=== PATIENT | male | born 1960 | race Caucasian/White ===

== ENCOUNTER 2018-12-19 07:44 | Inpatient (IN) | payer MEDICARE, MEDICAID ==
[~2018-12-19] VITALS: Ht 180.3 cm; Wt 58.5 kg
[~2018-12-19 07:44] MED LIST: ACET325T9 PO; ALBU2.5V5 NEB; ARIP2TAB3 PO; CHOL100013 PO; DOXY100C2 PO; DOXY100T PO; FAMO-63 PO; FLUT1DIS IH; FLUT1DIS3 INH; HYDR-2761 PO; IBUP-1027 PO; IPRA4AER IH; LEVO500T59 PO; LORA-434 PO; LORA10TA3 PO; PANT40TA77 PO; PRED-220 PO; PRED20TA PO; SIMV40TA3 PO; TIOT18CA IH; TIZA4TAB8 PO; VENTOLIN HFA18 GM IH
[2018-12-19] MEDS: IPRATRPIUM/ALBUTEROL 0.5/2.5MG 3 ML NEBU. NEB ONE ×2 (08:00→08:17)
[2018-12-19] MEDS ORDERED: IPRATRPIUM/ALBUTEROL 0.5/2.5MG 3 ML NEBU. NEB ONE (08:00)
[2018-12-19] MEDS ORDERED: methylPREDNISolone SOD SUCC PF 125 MG/2 ML VIAL. IV ONE (08:00)
--- NOTE | 2018-12-19 08:05 | EKG ---
[facility] [address] [place] [address] Test Date: 2018-12-19 Test Time: 07:53:02 Pat Name: MACIEJ YUAN Department: Room: Gender: M Quality Compliance Manager: : [id number] Requested By: EDSON ARAUJO Order Number: [id number] Reading MD: Measurements Intervals [place] Rate: 119 P: 90 ID: [id number] QRS: 88 QRSD: 80 T: 53 QT: 302 QTc: 431 Interpretive Statements SINUS TACHYCARDIA QRS(T) CONTOUR ABNORMALITY CONSIDER ANTEROSEPTAL INFARCT POSSIBLY ABNORMAL ECG RI6.01 Unconfirmed report No previous ECG available for comparison
[2018-12-19 08:20] LABS: BASO % 0 % (0-3); EOS % 0 % (0-3); HEMATOCRIT 40.1 % (39.0-53.0); HEMOGLOBIN 13.3 g/dL (13.0-17.5); LYMPH % 7 % (24-48); MEAN CORPUSCULAR HEMOGLOBIN 30 pg (25-35); MEAN CORPUSCULAR HGB CONC 33 g/dL (31-37); MEAN CORPUSCULAR VOLUME 90 fL (79-100); MONO # 2.1 x10^3/uL (0.0-1.1); MONO % 15 % (0-9); NEUT # 10.8 x10^3/uL (1.8-7.7); NEUT % 78 % (31-73); PLATELET COUNT 425 x10^3/uL (140-400); RED BLOOD COUNT 4.46 x10^6/uL (4.30-5.70); RED CELL DISTRIBUTION WIDTH 13.8 % (11.5-14.5); WHITE BLOOD COUNT 13.9 x10^3/uL (4.0-11.0)
--- NOTE | 2018-12-19 08:22 | RAD ---
Indication:Shortness of breath. TECHNIQUE:Portable AP chest X-ray COMPARISON: 12/10/2017. FINDINGS: Heart is normal in size. Lungs are hyperinflated without focal consolidation. No pneumothorax or pleural effusion. Visualized bony thorax is within normal limits. IMPRESSION: COPD. Superimposed atypical/viral infection not ruled out. Electronically signed by: Curly Beaulieu DO (12/19/2018 8:19 AM) [facility]
[2018-12-19 08:23] LABS: CALCIUM 9.9 mg/dL (8.5-10.1); GFR 76.2; POTASSIUM 5.1 mmol/L (3.5-5.1)
--- NOTE | 2018-12-19 08:27 | PHYS DOC ---
Past Medical History Past Medical History: Anxiety, COPD, GERD, High Cholesterol, Hypertension, Schizophrenia, Other Additional Past Medical Histor: Chronic Pain, allergic rhinitis, delusional disorder,Resp failure,vit D def Past Surgical History: Other Additional Past Surgical Histo: CHEST TUBE (R), (L) FOOT TENDON Additional Information: 2 cigarettes daily Alcohol Use: Rarely Drug Use: Marijuana Adult General Chief Complaint Chief Complaint: SHORTNESS OF BREATH HPI HPI Patient is a 58-year-old male with multiple medical problems including oxygen- dependent COPD who lives in a rehabilitation facility presents with a several day history of progressive shortness of breath. He states that he is been out of oxygen his home which is been difficult. He also states the air conditioner has been out at his facility over the last couple days which has led to increasing shortness of breath. He states he hasn't had any significant cough. He denies any chest pain. He denies any hemoptysis. He states this feels typical of his previous lung problems. He does state that he takes his medication as directed. He denies any fever chills or sweats.[] Review of Systems Review of Systems Constitutional: Denies fever or chills [] Eyes: Denies change in visual acuity, redness, or eye pain [] HENT: Denies nasal congestion or sore throat [] Respiratory: Reports[] Cardiovascular: No additional information not addressed in HPI [] GI: Denies abdominal pain, nausea, vomiting, bloody stools or diarrhea [] : Denies dysuria or hematuria [] Musculoskeletal: Denies back pain or joint pain [] Integument: Denies rash or skin lesions [] Neurologic: Denies headache, focal weakness or sensory changes [] Endocrine: Denies polyuria or polydipsia [] All other systems were reviewed and found to be within normal limits, except as documented in this note. Current Medications Current Medications Current Medications Medications (Trade) Dose Ordered Sig/Steven Start Time Stop Time Status Last Admin Dose Admin Albuterol/ Ipratropium (Duoneb) 3 ml 1X ONCE 12/19/18 08:00 12/19/18 08:04 DC 12/19/18 08:00 3 ML Methylprednisolone Sodium Succinate (SOLU-Medrol 125MG VIAL) 125 mg 1X ONCE 12/19/18 08:00 12/19/18 08:04 DC 12/19/18 08:06 125 MG Allergies Allergies Allergies Coded Allergies Type Severity Reaction Last Updated Verified I S O L A T I O N *CONTACT* Allergy Unknown 03/01/16 Yes No Known Medication Allergies Allergy Unknown 03/01/16 Yes Physical Exam Physical Exam Constitutional: Well developed, well nourished, no acute distress, non-toxic appearance. [] HENT: Normocephalic, atraumatic, bilateral external ears normal, oropharynx moist, no oral exudates, nose normal. [] Eyes: PERRLA, EOMI, conjunctiva normal, no discharge. [] Neck: Normal range of motion, no tenderness, supple, no stridor. [] Cardiovascular:Heart rate regular rhythm, no murmur [] Lungs & Thorax: Bilateral breath sounds clear to auscultation [] Abdomen: Bowel sounds normal, soft, no tenderness, no masses, no pulsatile masses. [] Skin: Warm, dry, no erythema, no rash. [] Back: No tenderness, no CVA tenderness. [] Extremities: No tenderness, no cyanosis, no clubbing, ROM intact, no edema. [] Neurologic: Alert and oriented X 3, normal motor function, normal sensory function, no focal deficits noted. [] Psychologic: Affect normal, judgement normal, mood normal. [] Current Patient Data Vital Signs Vital Signs Date Time Temp Pulse Resp B/P (MAP) Pulse Ox O2 Delivery O2 Flow Rate FiO2 12/19/18 08:22 92 Nasal Cannula 2.0 12/19/18 08:00 114 122/62 (82) 12/19/18 07:44 96.1 36 96.1 Lab Values Laboratory Tests Test 12/19/18 08:00 12/19/18 08:10 White Blood Count 13.9 x10^3/uL (4.0-11.0) H Red Blood Count 4.46 x10^6/uL (4.30-5.70) Hemoglobin 13.3 g/dL (13.0-17.5) Hematocrit 40.1 % (39.0-53.0) Mean Corpuscular Volume 90 fL (79-100) Mean Corpuscular Hemoglobin 30 pg (25-35) Mean Corpuscular Hemoglobin Concent 33 g/dL (31-37) Red Cell Distribution Width 13.8 % (11.5-14.5) Platelet Count 425 x10^3/uL (140-400) H Neutrophils (%) (Auto) 78 % (31-73) H Lymphocytes (%) (Auto) 7 % (24-48) L Monocytes (%) (Auto) 15 % (0-9) H Eosinophils (%) (Auto) 0 % (0-3) Basophils (%) (Auto) 0 % (0-3) Neutrophils # (Auto) 10.8 x10^3/uL (1.8-7.7) H Lymphocytes # (Auto) 1.0 x10^3/uL (1.0-4.8) Monocytes # (Auto) 2.1 x10^3/uL (0.0-1.1) H Eosinophils # (Auto) 0.0 x10^3/uL (0.0-0.7) Basophils # (Auto) 0.0 x10^3/uL (0.0-0.2) Segmented Neutrophils % 48 % (35-66) Band Neutrophils % 29 % (0-9) H Lymphocytes % 6 % (24-48) L Monocytes % 16 % (0-10) H Basophils % 1 % (0-3) Toxic Granulation Slight Platelet Estimate Adequate (ADEQUATE) Sodium Level 129 mmol/L (136-145) L Potassium Level 5.1 mmol/L (3.5-5.1) Chloride Level 88 mmol/L (98-107) L Carbon Dioxide Level 33 mmol/L (21-32) H Anion Gap 8 (6-14) Blood Urea Nitrogen 17 mg/dL (8-26) Creatinine 1.0 mg/dL (0.7-1.3) Estimated GFR (Cockcroft-Gault) 76.2 BUN/Creatinine Ratio 17 (6-20) Glucose Level 131 mg/dL (70-99) H Calcium Level 9.9 mg/dL (8.5-10.1) Total Bilirubin 0.3 mg/dL (0.2-1.0) Aspartate Amino Transferase (AST) 26 U/L (15-37) Alanine Aminotransferase (ALT) 19 U/L (16-63) Alkaline Phosphatase 84 U/L (46-116) Troponin I Quantitative < 0.017 ng/mL (0.000-0.055) JW-Gst-V-Type Natriuretic Peptide 1803 pg/mL (0-124) H Total Protein 8.2 g/dL (6.4-8.2) Albumin 3.0 g/dL (3.4-5.0) L Albumin/Globulin Ratio 0.6 (1.0-1.7) L O2 Saturation 96 % (92-99) Arterial Blood pH 7.24 (7.35-7.45) L Arterial Blood pCO2 at Patient Temp 80 mmHg (35-46) *H Arterial Blood pO2 at Patient Temp 90 mmHg (65-108) Arterial Blood HCO3 34 mmol/L (21-28) H Arterial Blood Base Excess 3 mmol/L (-3-3) FiO2 36% Laboratory Tests 12/19/18 08:00 Laboratory Tests 12/19/18 08:00 EKG EKG [EKG: Sinus tachycardia rate of 120 some nonspecific repolarization abnormalities no obvious ST T changes no evidence of ischemia] Radiology/Procedures Radiology/Procedures [] Course & Med Decision Making Course & Med Decision Making Pertinent Labs and Imaging studies reviewed. (See chart for details) [ED course: Evaluation reveals a 58-year-old male presents with reviewing difficulties. He had scattered wheezes throughout both lungs. He was given ba ck-to-back DuoNeb's and 125 of Solu-Medrol during his stay in the department which did help alleviate his symptoms. His ABG showed fairly significant hypercapnia pH of 7.25 PCO2 of 80 consistent with a respiratory type acidosis. Patient will be admitted to our hospitalist group with pulmonary consult. CRITICAL CARE: Time spent was 35 minutes. This includes medical management, evaluation, reevaluation, discussion with consultants and family. Critical Care does NOT include time spent on separately billed procedures. ] Dragon Disclaimer Dragon Disclaimer This electronic medical record was generated, in whole or in part, using a voice recognition dictation system. Departure Departure Impression: Primary Impression: COPD exacerbation Additional Impression: Hypercapnic respiratory failure Disposition: ADMITTED INPATIENT Admitting Physician: LAURA Condition: STABLE Referrals: TRES CASTANEDA (PCP) Problem Qualifiers Additional Impression: Hypercapnic respiratory failure Chronicity: acute on chronic Qualified Codes: J96.22 - Acute and chronic respiratory failure with hypercapnia EDSON ARAUJO DO Dec 19, 2018 08:27
[2018-12-19 08:29] LABS: ALBUMIN/GLOBULIN RATIO 0.6 (1.0-1.7); TOTAL BILIRUBIN 0.3 mg/dL (0.2-1.0); TOTAL PROTEIN 8.2 g/dL (6.4-8.2)
[2018-12-19] MEDS ORDERED: ONDANSETRON PF 4 MG/2 ML VIAL. IV PRN ×2 (08:30→08:45)
[2018-12-19] MEDS ORDERED: ACETAMINOPHEN 325 MG TABLET. PO PRN (08:30)
[2018-12-19] MEDS ORDERED: cloNIDine HCL 0.1 MG TABLET PO PRN (08:45)
[2018-12-19] MEDS ORDERED: HYDROcodone/APAP 5/325MG 1 TAB TABLET PO PRN (08:45)
[2018-12-19] MEDS ORDERED: LORazepam 1 MG TABLET PO PRN (08:45)
[2018-12-19] MEDS ORDERED: ACETAMINOPHEN 325 MG TABLET. PO SCH (08:45)
[2018-12-19] MEDS ORDERED: guaiFENesin DM 200MG/20MG 10 ML SYRUP PO PRN (08:45)
[2018-12-19] MEDS ORDERED: NON FORMULARY ITEM (Tiotropium Bromide (Spiriva) 1 CAP) IH SCH (09:00)
[2018-12-19 10:18] LABS: % BANDS 29 % (0-9); % BASOS 1 % (0-3); % LYMPHS 6 % (24-48); % MONOS 16 % (0-10); % SEGS 48 % (35-66); PLT ESTIMATE ADEQUATE (ADEQUATE); TOXIC GRANULATION SLIGHT
--- NOTE | 2018-12-19 11:06 | PDOC1 ---
History and Physical Date of Admission Date of Admission DATE: 12/19/18 TIME: 11:00 Identification/Chief Complaint Chief Complaint soa Source Source: Caregiver, Chart review, Patient History of Present Illness History of Present Illness 58-year-old white male, cachectic looking and has a chronic COPDer physique, BMI 18, SOA. Very tachypneic with retractions on my exam seen at ER Full code Never been intubated but has been on the BiPAP before and refusing the BiPAP today earlier on. ABG shows a pH of 7.24 with PCO2 80s, O2 90. WBC 13, reactive thrombocytosis 428 with normal hemoglobin. Sodium 129, always low in chronic COPDers. He has a lot of comorbidities but most importantly is his COPD. Quit smoking. After my discussion with him, laying all the facts re CO2, high chance of tiring out, he was agreeable to wear the BiPAP Discussed with ER Rajan CXR shows emphysematous lungs but no acute pathology Past Medical History Cardiovascular: Hyperlipidemia Pulmonary: COPD CENTRAL NERVOUS SYSTEM: Dementia, Other GI: GERD Heme/Onc: No pertinent hx Hepatobiliary: No pertinent hx Psych: No pertinent hx Rheumatologic: No pertinent hx Infectious disease: No pertinent hx Renal/: No pertinent hx Endocrine: No pertinent hx Past Surgical History Past Surgical History: Other Family History Family History: Family History Unknown Social History Smoke: Quit ALCOHOL: none Drugs: Marijuana, Other Current Problem List Problem List Problems Medical Problems: (1) COPD exacerbation Status: Acute (2) Hypercapnic respiratory failure Status: Acute Current Medications Current Medications Current Medications Albuterol/ Ipratropium (Duoneb) 3 ml 1X ONCE NEB Last administered on 12/19/18at 08:00; Start 12/19/18 at 08:00; Stop 12/19/18 at 08:04; Status DC Methylprednisolone Sodium Succinate (SOLU-Medrol 125MG VIAL) 125 mg 1X ONCE IV Last administered on 12/19/18at 08:06; Start 12/19/18 at 08:00; Stop 12/19/18 at 08:04; Status DC Albuterol/ Ipratropium (Duoneb) 3 ml 1X ONCE NEB Last administered on 12/19/18at 08:00; Start 12/19/18 at 08:00; Stop 12/19/18 at 08:04; Status DC Albuterol/ Ipratropium (Duoneb) 3 ml Q4HRS W/A NEB ; Start 12/19/18 at 10:00 Methylprednisolone Sodium Succinate (SOLU-Medrol 40MG VIAL) 40 mg Q8HRS IV ; Start 12/19/18 at 14:00 Ondansetron HCl (Zofran) 4 mg PRN Q8HRS PRN IV NAUSEA/VOMITING; Start 12/19/18 at 08:30; Stop 12/19/18 at 08:36; Status DC Sodium Chloride 1,000 ml @ 125 mls/hr Q8H IV ; Start 12/19/18 at 08:27; Stop 12/20/18 at 08:26 Acetaminophen (Tylenol) 650 mg PRN Q4HRS PRN PO FEVER; Start 12/19/18 at 08:30; Stop 12/20/18 at 08:29 Ondansetron HCl (Zofran) 4 mg PRN Q6HRS PRN IV NAUSEA/VOMITING; Start 12/19/18 at 08:45 Guaifenesin (Robitussin Dm) 10 ml PRN Q6HRS PRN PO COUGH; Start 12/19/18 at 08:45 Benzonatate (Tessalon Perle) 100 mg PGL398 PO ; Start 12/19/18 at 09:00 Acetaminophen (Tylenol) 650 mg PRN Q4HRS PO ; Start 12/19/18 at 08:45 Famotidine (Pepcid) 20 mg HS PO ; Start 12/19/18 at 21:00 Acetaminophen/ Hydrocodone Bitart (Lortab 5/325) 1 tab PRN Q6HRS PRN PO PAIN; Start 12/19/18 at 08:45 Ibuprofen (Motrin) 400 mg BID PO ; Start 12/19/18 at 09:00 Lorazepam (Ativan) 1 mg PRN DAILY PRN PO ANXIETY / AGITATION; Start 12/19/18 at 08:45 Pantoprazole Sodium (Protonix) 40 mg QHS PO ; Start 12/19/18 at 21:00 Aripiprazole (Abilify) 2 mg DAILY PO ; Start 12/20/18 at 09:00 Vitamin D (Vitamin D3) 1,000 unit DAILY PO ; Start 12/19/18 at 21:00 Simvastatin (Zocor) 40 mg QHS PO ; Start 12/19/18 at 21:00 Non-Formulary Medication (Tiotropium [place] (Spiriva)) 1 cap DAILY IH ; Start 12/19/18 at 09:00; Status UNV Tizanidine HCl (Zanaflex) 4 mg QHS PO ; Start 12/19/18 at 10:45 Clonidine HCl (Catapres) 0.1 mg PRN Q1HR PRN PO HYPERTENSION; Start 12/19/18 at 08:45 Active Scripts Active Prednisone (Prednisone) 10 Mg Tablet 10 Mg PO UD Take 4 tablets by mouth daily for 3 days, then take 3 tablets daily for 3 days, then take 2 tablet daily for 3 days, then take 1 tablet by mouth daily x 3 days, then stop. Advair 100-50 Diskus (Fluticasone/Salmeterol) 1 Each Disk.w.dev 1 Puff IH BID Albuterol Sulfate Neb Soln (Albuterol Sulfate) 2.5 Mg/3 Ml Vial.neb 2.5 Mg NEB PRN Q4HRS PRN Reported Zanaflex (Tizanidine Hcl) 4 Mg Tablet 1 Tab PO QHS Vitamin D (Cholecalciferol (Vitamin D3)) 1,000 Unit Capsule 1 Cap PO DAILY Ibuprofen 400 Mg Tablet 400 Mg PO BID Pepcid (Famotidine) 20 Mg Tablet 20 Mg PO HS Doxycycline Hyclate 100 Mg Tablet 1 Tab PO BID Spiriva (Tiotropium [place]) 18 Mcg Cap.w.dev 1 Cap IH DAILY Simvastatin 40 Mg Tablet 1 Tab PO QHS Protonix (Pantoprazole Sodium) 40 Mg Tablet. 1 Tab PO QHS Hydrocodone-Apap 5-325 (Hydrocodone Bit/Acetaminophen) 1 Each Tablet 1 Tab PO PRN Q6HRS PRN Loratadine 10 Mg Tablet 1 Tab PO DAILY Ativan (Lorazepam) 1 Mg Tablet 1 Mg PO PRN DAILY PRN Tylenol (Acetaminophen) 325 Mg Tablet 2 Tab PO PRN Q4HRS Abilify (Aripiprazole) 2 Mg Tablet 2 Mg PO DAILY Allergies Allergies: Coded Allergies: I S O L A T I O N *CONTACT* (Verified Allergy, Unknown, 03/01/16) mrsa No Known Medication Allergies (Verified Allergy, Unknown, 03/01/16) ROS Review of System SOA, dry cough, no chest pain, no fever, the rest of ROS is limited he is tachypneic and has retractions intercostals Physical Exam General: moderate distress, Other (cachectic looking with minimal subcutaneous tissue) HEENT: Atraumatic, PERRLA Lungs: Normal air movement, Other (wheezy, hyperactive airway, but equal air entry) Heart: S1S2, no thrills, no rubs, no gallops, no murmurs, other (sinus tachycardia, no JVD) Cardiovascular: S1, S2 Abdomen: Normal bowel sounds, Soft, No tenderness, No hepatosplenomegaly, No masses Rectal Exam: not examined PELVIC: Nml ext genitalia Extremities: No clubbing, No cyanosis, No edema, Normal pulses, No tenderness/swelling Skin: No rashes, No breakdown, No significant lesion Neuro: Normal gait, Normal speech, Strength at 5/5 X4 ext, Normal tone, Sensation intact, Cranial nerves 3-12 NL, Reflexes 2+ Psych/Mental Status: Mental status NL, Mood NL Vitals Vitals Vital Signs Date Time Temp Pulse Resp B/P (MAP) Pulse Ox O2 Delivery O2 Flow Rate FiO2 12/19/18 10:26 106 14 156/76 (102) 97 BiPAP/CPAP 12/19/18 09:30 4.0 12/19/18 07:44 96.1 96.1 Labs Labs Laboratory Tests Test 12/19/18 08:00 12/19/18 08:10 White Blood Count 13.9 x10^3/uL (4.0-11.0) Red Blood Count 4.46 x10^6/uL (4.30-5.70) Hemoglobin 13.3 g/dL (13.0-17.5) Hematocrit 40.1 % (39.0-53.0) Mean Corpuscular Volume 90 fL (79-100) Mean Corpuscular Hemoglobin 30 pg (25-35) Mean Corpuscular Hemoglobin Concent 33 g/dL (31-37) Red Cell Distribution Width 13.8 % (11.5-14.5) Platelet Count 425 x10^3/uL (140-400) Neutrophils (%) (Auto) 78 % (31-73) Lymphocytes (%) (Auto) 7 % (24-48) Monocytes (%) (Auto) 15 % (0-9) Eosinophils (%) (Auto) 0 % (0-3) Basophils (%) (Auto) 0 % (0-3) Neutrophils # (Auto) 10.8 x10^3/uL (1.8-7.7) Lymphocytes # (Auto) 1.0 x10^3/uL (1.0-4.8) Monocytes # (Auto) 2.1 x10^3/uL (0.0-1.1) Eosinophils # (Auto) 0.0 x10^3/uL (0.0-0.7) Basophils # (Auto) 0.0 x10^3/uL (0.0-0.2) Segmented Neutrophils % 48 % (35-66) Band Neutrophils % 29 % (0-9) Lymphocytes % 6 % (24-48) Monocytes % 16 % (0-10) Basophils % 1 % (0-3) Toxic Granulation Slight Platelet Estimate Adequate (ADEQUATE) Sodium Level 129 mmol/L (136-145) Potassium Level 5.1 mmol/L (3.5-5.1) Chloride Level 88 mmol/L (98-107) Carbon Dioxide Level 33 mmol/L (21-32) Anion Gap 8 (6-14) Blood Urea Nitrogen 17 mg/dL (8-26) Creatinine 1.0 mg/dL (0.7-1.3) Estimated GFR (Cockcroft-Gault) 76.2 BUN/Creatinine Ratio 17 (6-20) Glucose Level 131 mg/dL (70-99) Calcium Level 9.9 mg/dL (8.5-10.1) Total Bilirubin 0.3 mg/dL (0.2-1.0) Aspartate Amino Transf (AST/SGOT) 26 U/L (15-37) Alanine Aminotransferase (ALT/SGPT) 19 U/L (16-63) Alkaline Phosphatase 84 U/L (46-116) Troponin I Quantitative < 0.017 ng/mL (0.000-0.055) OX-Jdb-I-Type Natriuretic Peptide 1803 pg/mL (0-124) Total Protein 8.2 g/dL (6.4-8.2) Albumin 3.0 g/dL (3.4-5.0) Albumin/Globulin Ratio 0.6 (1.0-1.7) O2 Saturation 96 % (92-99) Arterial Blood pH 7.24 (7.35-7.45) Arterial Blood pCO2 at Patient Temp 80 mmHg (35-46) Arterial Blood pO2 at Patient Temp 90 mmHg (65-108) Arterial Blood HCO3 34 mmol/L (21-28) Arterial Blood Base Excess 3 mmol/L (-3-3) FiO2 36% Laboratory Tests Test 12/19/18 08:00 12/19/18 08:10 White Blood Count 13.9 x10^3/uL (4.0-11.0) Red Blood Count 4.46 x10^6/uL (4.30-5.70) Hemoglobin 13.3 g/dL (13.0-17.5) Hematocrit 40.1 % (39.0-53.0) Mean Corpuscular Volume 90 fL (79-100) Mean Corpuscular Hemoglobin 30 pg (25-35) Mean Corpuscular Hemoglobin Concent 33 g/dL (31-37) Red Cell Distribution Width 13.8 % (11.5-14.5) Platelet Count 425 x10^3/uL (140-400) Neutrophils (%) (Auto) 78 % (31-73) Lymphocytes (%) (Auto) 7 % (24-48) Monocytes (%) (Auto) 15 % (0-9) Eosinophils (%) (Auto) 0 % (0-3) Basophils (%) (Auto) 0 % (0-3) Neutrophils # (Auto) 10.8 x10^3/uL (1.8-7.7) Lymphocytes # (Auto) 1.0 x10^3/uL (1.0-4.8) Monocytes # (Auto) 2.1 x10^3/uL (0.0-1.1) Eosinophils # (Auto) 0.0 x10^3/uL (0.0-0.7) Basophils # (Auto) 0.0 x10^3/uL (0.0-0.2) Segmented Neutrophils % 48 % (35-66) Band Neutrophils % 29 % (0-9) Lymphocytes % 6 % (24-48) Monocytes % 16 % (0-10) Basophils % 1 % (0-3) Toxic Granulation Slight Platelet Estimate Adequate (ADEQUATE) Sodium Level 129 mmol/L (136-145) Potassium Level 5.1 mmol/L (3.5-5.1) Chloride Level 88 mmol/L (98-107) Carbon Dioxide Level 33 mmol/L (21-32) Anion Gap 8 (6-14) Blood Urea Nitrogen 17 mg/dL (8-26) Creatinine 1.0 mg/dL (0.7-1.3) Estimated GFR (Cockcroft-Gault) 76.2 BUN/Creatinine Ratio 17 (6-20) Glucose Level 131 mg/dL (70-99) Calcium Level 9.9 mg/dL (8.5-10.1) Total Bilirubin 0.3 mg/dL (0.2-1.0) Aspartate Amino Transf (AST/SGOT) 26 U/L (15-37) Alanine Aminotransferase (ALT/SGPT) 19 U/L (16-63) Alkaline Phosphatase 84 U/L (46-116) Troponin I Quantitative < 0.017 ng/mL (0.000-0.055) UC-Ble-O-Type Natriuretic Peptide 1803 pg/mL (0-124) Total Protein 8.2 g/dL (6.4-8.2) Albumin 3.0 g/dL (3.4-5.0) Albumin/Globulin Ratio 0.6 (1.0-1.7) O2 Saturation 96 % (92-99) Arterial Blood pH 7.24 (7.35-7.45) Arterial Blood pCO2 at Patient Temp 80 mmHg (35-46) Arterial Blood pO2 at Patient Temp 90 mmHg (65-108) Arterial Blood HCO3 34 mmol/L (21-28) Arterial Blood Base Excess 3 mmol/L (-3-3) FiO2 36% VTE Prophylaxis Ordered VTE Prophylaxis Devices: Yes VTE Pharmacological Prophylaxi: Yes Assessment/Plan Assessment/Plan Review of COPD exacerbation-we'll need an IPPV Mixed hypercapnic hypoxic respiratory failure Cachexia-BMI 18 Ex-smoker Reactive thrombocytosis Leukocytosis/SIRS Sinus tachycardia Clear x-ray So hyponatremia-likely SIADH like picture in a chronic COPD or Plan: Admit 2 midnights, hook telemetry BiPAP Pulmonary consult DuoNeb's, cough medicine, other supportive meds Awaiting home meds to reconcile NO abx for now - clear CXR Monitor that thrombocytoses and leukocytosis Repeat ABG in the morning Xanax when necessary for BiPAP Seen at ER Full code Discussed with KANDICE Campoverde for diet when off bipap cc 30 ANYI FORTE MD Dec 19, 2018 11:06
[2018-12-19] MEDS: IBUPROFEN 400 MG TABLET. PO SCH ×2 (11:43→20:00)
[2018-12-19] MEDS: BENZONATATE 100 MG CAPSULE. PO SCH ×3 (11:43→20:00)
[2018-12-19] MEDS: IV NORMAL SALINE 1000ML BAG 1,000 ML IV SCH ×2 (11:43→17:11)
[2018-12-19] MEDS: tiZANidine 4 MG TABLET. PO SCH ×2 (11:43→19:59)
[2018-12-19 11:50] VITALS: BP 131/84
[2018-12-19] MEDS: IPRATRPIUM/ALBUTEROL 0.5/2.5MG 3 ML NEBU. NEB SCH ×4 (12:11→19:33)
--- NOTE | 2018-12-19 13:04 | CONS ---
DATE OF CONSULTATION: PULMONARY CONSULTATION ATTENDING PHYSICIAN: Dr. Wise. REASON FOR CONSULTATION: Respiratory failure. HISTORY OF PRESENT ILLNESS: The patient is a 58-year-old male who has been smoking since age 13, 1 pack per day, now down to less than half pack per day. He has chronic hypercapnia. He appears cachectic. He also had a history of a cardiac catheterization done in 2018. At that time, his ejection fraction was 35% and his left ventricular end-diastolic pressure was 32 and had no significant CAD. The patient was brought into the hospital with dyspnea. He was also noted to be lethargic. He had highly abnormal arterial blood gas, which revealed a pH of 7.24, pCO2 of 80 and a pO2 of 90 on 36% FiO2. The nursing staff placed him on BiPAP. He has some reluctance and refusal on the BiPAP. This morning when I saw the patient, it was off and he just finished his meal. I had a long discussion with the patient the importance of using BiPAP. I told him that if he does not wear the BiPAP, he will end up on a life support. I also asked him about his advanced directives regarding the need for life support in case of respiratory failure and he was very clear about that not to be on a life support or chest compressions. This was also witnessed by respiratory therapist in the room. He has mild cough, no fever, no chills, no chest pain, no headaches, no nausea, vomiting or diarrhea. PAST MEDICAL HISTORY: Significant for suspected end-stage COPD with chronic hypercapnia, history of hyperlipidemia, history of some dementia. PAST SURGICAL HISTORY: No recent surgery. FAMILY HISTORY: Noncontributory to lungs. ALLERGIES: None. MEDICATIONS: Reviewed as listed in the MRAD including IV steroids, DuoNebs, hydrocodone and p.r.n. Lorazepam. REVIEW OF SYSTEMS: Twelve-point system obtained. Pertinent positives discussed in my history of present illness, otherwise noncontributory. All systems that were negative were reviewed as well. SOCIAL HISTORY: Smoker since age 13 and has not quit cigarettes. PHYSICAL EXAMINATION: GENERAL: He is awake, following commands. VITAL SIGNS: Blood pressure 131/84, pulse ox 98% on 3 liters, afebrile. HEENT: Sclerae nonicteric. NECK: Supple. LUNGS: Diminished breath sounds bilaterally. CARDIOVASCULAR: Regular rate and rhythm. ABDOMEN: Soft, nontender. EXTREMITIES: With no pitting edema. LABORATORY DATA: Reviewed. BUN is 17, creatinine 1.0. BNP 1803. Albumin 3.0. ABGs as discussed in my history of present illness. White cell count 13.9, hemoglobin 13.3, platelets are 425. IMPRESSION: 1. [id number] hypercapnic respiratory failure secondary to acute exacerbation of chronic obstructive pulmonary disease. 2. Previous cardiac catheterization in 12/2017 with normal coronary arteries, but ejection fraction of 35% and end-diastolic pressure of 32. 3. Abnormal chest x-ray with Slightly prominent vascular markings. RECOMMENDATIONS: 1. Discussed with the patient regarding the importance of BiPAP. He agrees to use the BiPAP. Discussed with him regarding the suspected severity of emphysema and ongoing risks for respiratory failure and possible needs for mechanical ventilation in future.He also agrees not to be on life support or have CPR in case of cardiopulmonary arrest. He is agreeable to use BIPAP till his condition improves. This was witnessed by the respiratory therapist as well at the bedside. Pt agrees with current and future plan of care. 2. Follow ABGs in 2 hours while on BiPAP. 3. Avoid hyperoxia. 4. Mild diuresis. 5. Continue DuoNeb. 6. Continue IV steroids. 7. Discontinue hydrocodone and lorazepam. 8. We will follow along with you. Discussed with RN. RADHA CONN MD DR: MINDY/gt JOB#: [id number] / [id number] YARI
[2018-12-19] MEDS ORDERED: FUROSEMIDE 20 MG/2 ML VIAL. IVP ONE (13:30)
[2018-12-19] MEDS: methylPREDNISolone SOD SUCC PF 40 MG/ML VIAL. IV SCH ×2 (13:54→21:03)
[2018-12-19 15:22] LABS: BASE EXCESS ABG 8 mmol/L (-3-3); FIO2 ABG 25; HCO3 ABG 36 mmol/L (21-28); PCO2 ABG 66 mmHg (35-46); PO2 ABG 70 mmHg (65-108); SAT O2 ABG 93 % (92-99)
[2018-12-19 15:24] VITALS: BP 103/72
[2018-12-19 19:35] VITALS: BP 124/81
[2018-12-19] MEDS: PANTOPRAZOLE 40 MG TABLET.DR. PO SCH (20:00)
[2018-12-19] MEDS: SIMVASTATIN 40 MG TABLET. PO SCH (20:00)
[2018-12-19] MEDS: CHOLECALCIFEROL (VITAMIN D3) 1,000 UNIT TABLET PO SCH (20:00)
[2018-12-19] MEDS: FAMOTIDINE 20 MG TABLET. PO SCH (20:00)
[2018-12-19 23:29] VITALS: BP 110/77
[2018-12-20] MEDS: IV NORMAL SALINE 1000ML BAG 1,000 ML IV SCH (03:13)
[2018-12-20 03:44] VITALS: BP 111/71
[2018-12-20 04:57] LABS: BASO % 0 % (0-3); EOS % 0 % (0-3); HEMATOCRIT 34.9 % (39.0-53.0); HEMOGLOBIN 11.4 g/dL (13.0-17.5); LYMPH # 0.7 x10^3/uL (1.0-4.8); LYMPH % 8 % (24-48); MEAN CORPUSCULAR HEMOGLOBIN 30 pg (25-35); MEAN CORPUSCULAR HGB CONC 33 g/dL (31-37); MEAN CORPUSCULAR VOLUME 91 fL (79-100); MONO # 0.5 x10^3/uL (0.0-1.1); MONO % 6 % (0-9); NEUT # 7.7 x10^3/uL (1.8-7.7); NEUT % 86 % (31-73); PLATELET COUNT 364 x10^3/uL (140-400); RED BLOOD COUNT 3.84 x10^6/uL (4.30-5.70); RED CELL DISTRIBUTION WIDTH 14.1 % (11.5-14.5); WHITE BLOOD COUNT 8.9 x10^3/uL (4.0-11.0)
[2018-12-20 05:12] LABS: CALCIUM 9.2 mg/dL (8.5-10.1); CREATININE 0.9 mg/dL (0.7-1.3); GFR 86.1; POTASSIUM 4.8 mmol/L (3.5-5.1)
[2018-12-20] MEDS: methylPREDNISolone SOD SUCC PF 40 MG/ML VIAL. IV SCH ×3 (06:33→20:32)
[2018-12-20] MEDS: IPRATRPIUM/ALBUTEROL 0.5/2.5MG 3 ML NEBU. NEB SCH ×5 (07:34→22:00)
[2018-12-20 07:38] VITALS: BP 174/106
[2018-12-20] MEDS ORDERED: diphenhydrAMINE HCL 25 MG CAPSULE PO PRN (09:00)
--- NOTE | 2018-12-20 09:14 | NUR ---
IP: Pt has a hx of + mrsa screens since 2016 with most recent + on 08/19/17. Pt has one documented negative on 12/10/17. Pt to be in contact precautions until a second screen is obtained and verified.
[2018-12-20] MEDS: IBUPROFEN 400 MG TABLET. PO SCH ×2 (09:36→20:29)
[2018-12-20] MEDS: ARIPiprazole 2 MG TABLET PO SCH (09:36)
[2018-12-20] MEDS: BENZONATATE 100 MG CAPSULE. PO SCH ×3 (09:36→20:28)
[2018-12-20] MEDS: CHOLECALCIFEROL (VITAMIN D3) 1,000 UNIT TABLET PO SCH (09:37)
--- NOTE | 2018-12-20 09:51 | PDOC ---
PULMONARY PROGRESS NOTES Subjective used BIPAP 3 hrs last night did not like it overall better Vitals Vital Signs Date Time Temp Pulse Resp B/P (MAP) Pulse Ox O2 Delivery O2 Flow Rate FiO2 12/20/18 07:38 98.5 109 20 174/106 (128) 95 Nasal Cannula 2.0 98.5 General: Alert, No acute distress Lungs: Other (poor air entry) Cardiovascular: S1, S2 Abdomen: Soft, Non-tender Neuro Exam: Alert Extremities: No Edema Skin: Warm Labs Laboratory Tests Test 12/19/18 08:00 12/19/18 08:10 12/19/18 11:25 12/19/18 14:40 White Blood Count 13.9 x10^3/uL (4.0-11.0) Red Blood Count 4.46 x10^6/uL (4.30-5.70) Hemoglobin 13.3 g/dL (13.0-17.5) Hematocrit 40.1 % (39.0-53.0) Mean Corpuscular Volume 90 fL (79-100) Mean Corpuscular Hemoglobin 30 pg (25-35) Mean Corpuscular Hemoglobin Concent 33 g/dL (31-37) Red Cell Distribution Width 13.8 % (11.5-14.5) Platelet Count 425 x10^3/uL (140-400) Neutrophils (%) (Auto) 78 % (31-73) Lymphocytes (%) (Auto) 7 % (24-48) Monocytes (%) (Auto) 15 % (0-9) Eosinophils (%) (Auto) 0 % (0-3) Basophils (%) (Auto) 0 % (0-3) Neutrophils # (Auto) 10.8 x10^3/uL (1.8-7.7) Lymphocytes # (Auto) 1.0 x10^3/uL (1.0-4.8) Monocytes # (Auto) 2.1 x10^3/uL (0.0-1.1) Eosinophils # (Auto) 0.0 x10^3/uL (0.0-0.7) Basophils # (Auto) 0.0 x10^3/uL (0.0-0.2) Segmented Neutrophils % 48 % (35-66) Band Neutrophils % 29 % (0-9) Lymphocytes % 6 % (24-48) Monocytes % 16 % (0-10) Basophils % 1 % (0-3) Toxic Granulation Slight Platelet Estimate Adequate (ADEQUATE) Sodium Level 129 mmol/L (136-145) Potassium Level 5.1 mmol/L (3.5-5.1) Chloride Level 88 mmol/L (98-107) Carbon Dioxide Level 33 mmol/L (21-32) Anion Gap 8 (6-14) Blood Urea Nitrogen 17 mg/dL (8-26) Creatinine 1.0 mg/dL (0.7-1.3) Estimated GFR (Cockcroft-Gault) 76.2 BUN/Creatinine Ratio 17 (6-20) Glucose Level 131 mg/dL (70-99) Calcium Level 9.9 mg/dL (8.5-10.1) Total Bilirubin 0.3 mg/dL (0.2-1.0) Aspartate Amino Transf (AST/SGOT) 26 U/L (15-37) Alanine Aminotransferase (ALT/SGPT) 19 U/L (16-63) Alkaline Phosphatase 84 U/L (46-116) Troponin I Quantitative < 0.017 ng/mL (0.000-0.055) < 0.017 ng/mL (0.000-0.055) < 0.017 ng/mL (0.000-0.055) [place]-A-Type Natriuretic Peptide 1803 pg/mL (0-124) Total Protein 8.2 g/dL (6.4-8.2) Albumin 3.0 g/dL (3.4-5.0) Albumin/Globulin Ratio 0.6 (1.0-1.7) O2 Saturation 96 % (92-99) Arterial Blood pH 7.24 (7.35-7.45) Arterial Blood pCO2 at Patient Temp 80 mmHg (35-46) Arterial Blood pO2 at Patient Temp 90 mmHg (65-108) Arterial Blood HCO3 34 mmol/L (21-28) Arterial Blood Base Excess 3 mmol/L (-3-3) FiO2 36% Test 12/19/18 15:05 12/20/18 03:40 O2 Saturation 93 % (92-99) Arterial Blood pH 7.35 (7.35-7.45) Arterial Blood pCO2 at Patient Temp 66 mmHg (35-46) Arterial Blood pO2 at Patient Temp 70 mmHg (65-108) Arterial Blood HCO3 36 mmol/L (21-28) Arterial Blood Base Excess 8 mmol/L (-3-3) FiO2 25 White Blood Count 8.9 x10^3/uL (4.0-11.0) Red Blood Count 3.84 x10^6/uL (4.30-5.70) Hemoglobin 11.4 g/dL (13.0-17.5) Hematocrit 34.9 % (39.0-53.0) Mean Corpuscular Volume 91 fL (79-100) Mean Corpuscular Hemoglobin 30 pg (25-35) Mean Corpuscular Hemoglobin Concent 33 g/dL (31-37) Red Cell Distribution Width 14.1 % (11.5-14.5) Platelet Count 364 x10^3/uL (140-400) Neutrophils (%) (Auto) 86 % (31-73) Lymphocytes (%) (Auto) 8 % (24-48) Monocytes (%) (Auto) 6 % (0-9) Eosinophils (%) (Auto) 0 % (0-3) Basophils (%) (Auto) 0 % (0-3) Neutrophils # (Auto) 7.7 x10^3/uL (1.8-7.7) Lymphocytes # (Auto) 0.7 x10^3/uL (1.0-4.8) Monocytes # (Auto) 0.5 x10^3/uL (0.0-1.1) Eosinophils # (Auto) 0.0 x10^3/uL (0.0-0.7) Basophils # (Auto) 0.0 x10^3/uL (0.0-0.2) Sodium Level 130 mmol/L (136-145) Potassium Level 4.8 mmol/L (3.5-5.1) Chloride Level 92 mmol/L (98-107) Carbon Dioxide Level 34 mmol/L (21-32) Anion Gap 4 (6-14) Blood Urea Nitrogen 16 mg/dL (8-26) Creatinine 0.9 mg/dL (0.7-1.3) Estimated GFR (Cockcroft-Gault) 86.1 Glucose Level 171 mg/dL (70-99) Calcium Level 9.2 mg/dL (8.5-10.1) Laboratory Tests Test 12/19/18 11:25 12/19/18 14:40 12/19/18 15:05 12/20/18 03:40 Troponin I Quantitative < 0.017 ng/mL (0.000-0.055) < 0.017 ng/mL (0.000-0.055) O2 Saturation 93 % (92-99) Arterial Blood pH 7.35 (7.35-7.45) Arterial Blood pCO2 at Patient Temp 66 mmHg (35-46) Arterial Blood pO2 at Patient Temp 70 mmHg (65-108) Arterial Blood HCO3 36 mmol/L (21-28) Arterial Blood Base Excess 8 mmol/L (-3-3) FiO2 25 White Blood Count 8.9 x10^3/uL (4.0-11.0) Red Blood Count 3.84 x10^6/uL (4.30-5.70) Hemoglobin 11.4 g/dL (13.0-17.5) Hematocrit 34.9 % (39.0-53.0) Mean Corpuscular Volume 91 fL (79-100) Mean Corpuscular Hemoglobin 30 pg (25-35) Mean Corpuscular Hemoglobin Concent 33 g/dL (31-37) Red Cell Distribution Width 14.1 % (11.5-14.5) Platelet Count 364 x10^3/uL (140-400) Neutrophils (%) (Auto) 86 % (31-73) Lymphocytes (%) (Auto) 8 % (24-48) Monocytes (%) (Auto) 6 % (0-9) Eosinophils (%) (Auto) 0 % (0-3) Basophils (%) (Auto) 0 % (0-3) Neutrophils # (Auto) 7.7 x10^3/uL (1.8-7.7) Lymphocytes # (Auto) 0.7 x10^3/uL (1.0-4.8) Monocytes # (Auto) 0.5 x10^3/uL (0.0-1.1) Eosinophils # (Auto) 0.0 x10^3/uL (0.0-0.7) Basophils # (Auto) 0.0 x10^3/uL (0.0-0.2) Sodium Level 130 mmol/L (136-145) Potassium Level 4.8 mmol/L (3.5-5.1) Chloride Level 92 mmol/L (98-107) Carbon Dioxide Level 34 mmol/L (21-32) Anion Gap 4 (6-14) Blood Urea Nitrogen 16 mg/dL (8-26) Creatinine 0.9 mg/dL (0.7-1.3) Estimated GFR (Cockcroft-Gault) 86.1 Glucose Level 171 mg/dL (70-99) Calcium Level 9.2 mg/dL (8.5-10.1) Medications Active Scripts Medications Dose Route/Sig Max Daily Dose Days Date Category Dose Instructions Zanaflex (Tizanidine Hcl) 4 Mg Tablet 1 Tab PO QHS 12/11/17 Reported Vitamin D (Cholecalciferol (Vitamin D3)) 1,000 Unit Capsule 1 Cap PO DAILY 12/11/17 Reported Ibuprofen 400 Mg Tablet 400 Mg PO BID 12/11/17 Reported Pepcid (Famotidine) 20 Mg Tablet 20 Mg PO HS 12/11/17 Reported Doxycycline Hyclate 100 Mg Tablet 1 Tab PO BID 12/11/17 Reported Prednisone (Prednisone) 10 Mg Tablet 10 Mg PO UD 08/20/17 Rx Take 4 tablets by mouth daily for 3 days, then take 3 tablets daily for 3 days, then take 2 tablet daily for 3 days, then take 1 tablet by mouth daily x 3 days, then stop. Advair 100-50 Diskus (Fluticasone/Salmeterol) 1 Each Disk.w.dev 1 Puff IH BID 08/20/17 Rx Spiriva (Tiotropium [place]) 18 Mcg Cap.w.dev 1 Cap IH DAILY 02/14/17 Reported Simvastatin 40 Mg Tablet 1 Tab PO QHS 02/14/17 Reported Protonix (Pantoprazole Sodium) 40 Mg Tablet.dr 1 Tab PO QHS 02/14/17 Reported Hydrocodone-Apap 5-325 (Hydrocodone Bit/Acetaminophen) 1 Each Tablet 1 Tab PO PRN Q6HRS PRN 02/14/17 Reported Loratadine 10 Mg Tablet 1 Tab PO DAILY 02/14/17 Reported Ativan (Lorazepam) 1 Mg Tablet 1 Mg PO PRN DAILY PRN 02/14/17 Reported Tylenol (Acetaminophen) 325 Mg Tablet 2 Tab PO PRN Q4HRS 02/14/17 Reported Abilify (Aripiprazole) 2 Mg Tablet 2 Mg PO DAILY 02/14/17 Reported Albuterol Sulfate Neb Soln (Albuterol Sulfate) 2.5 Mg/3 Ml Vial.neb 2.5 Mg NEB PRN Q4HRS PRN 05/08/15 Rx Impression . 1. [id number] hypercapnic respiratory failure secondary to acute exacerbation of chronic obstructive pulmonary disease. 2. Previous cardiac catheterization in 12/2017 with normal coronary arteries, but ejection fraction of 35% and end-diastolic pressure of 32. 3. Abnormal chest x-ray with Slightly prominent vascular markings. 4. Suspect end stage COPD Plan . 1. Discussed with the patient regarding the importance of BiPAP. He agrees to use the BiPAP as needed during day and Qhs. 2. Follow up ABGs improved 3. Avoid hyperoxia. 4. diuresis prn 5. Continue DuoNeb. 6. IV steroids with taper 7. off hydrocodone and lorazepam. 8. We will follow along with you. Discussed with RN. RADHA ECHAVARRIA MD Dec 20, 2018 09:51
--- NOTE | 2018-12-20 10:50 | PDOC ---
PROGRESS NOTES Chief Complaint Chief Complaint severe COPD exacerbation- need nIPPV Mixed hypercapnic hypoxic respiratory failure Cachexia-BMI 18 Ex-smoker Reactive thrombocytosis Leukocytosis/SIRS Sinus tachycardia hyponatremia-likely SIADH like picture in a chronic COPDer History of Present Illness History of Present Illness SOA, retractions, tachypneic, tachycardic Did need BiPAP last night, he is off O2 and BiPAP today ABG shows pH 7.35 but CO2 still 66 from 80 on admission, appropriate oxygenation NOW DNR and verifies with me that - does not want to be put in ventilator Plan: BiPAP now Pulmonary on board Counseled on smoking cessation cont other breathing treatments Blood pressure on the high side- pls give the when necessary's ordered DNR keep tele Vitals Vitals Vital Signs Date Time Temp Pulse Resp B/P (MAP) Pulse Ox O2 Delivery O2 Flow Rate FiO2 12/20/18 07:38 98.5 109 20 174/106 (128) 95 Nasal Cannula 2.0 98.5 Physical Exam General: severe distress, Other (cachectic looking with minimal subcutaneous tissue) Heart: Other (tachycardic) Lungs: Wheezing, Other (poor air entry) Abdomen: Normal bowel sounds, Soft, No tenderness, No hepatosplenomegaly, No masses Extremities: No clubbing, No cyanosis, No edema, Normal pulses, No tenderness/swelling Skin: No rashes, No breakdown, No significant lesion Labs LABS Laboratory Tests Test 12/19/18 11:25 12/19/18 14:40 12/19/18 15:05 12/20/18 03:40 Troponin I Quantitative < 0.017 ng/mL (0.000-0.055) < 0.017 ng/mL (0.000-0.055) O2 Saturation 93 % (92-99) Arterial Blood pH 7.35 (7.35-7.45) Arterial Blood pCO2 at Patient Temp 66 mmHg (35-46) Arterial Blood pO2 at Patient Temp 70 mmHg (65-108) Arterial Blood HCO3 36 mmol/L (21-28) Arterial Blood Base Excess 8 mmol/L (-3-3) FiO2 25 White Blood Count 8.9 x10^3/uL (4.0-11.0) Red Blood Count 3.84 x10^6/uL (4.30-5.70) Hemoglobin 11.4 g/dL (13.0-17.5) Hematocrit 34.9 % (39.0-53.0) Mean Corpuscular Volume 91 fL (79-100) Mean Corpuscular Hemoglobin 30 pg (25-35) Mean Corpuscular Hemoglobin Concent 33 g/dL (31-37) Red Cell Distribution Width 14.1 % (11.5-14.5) Platelet Count 364 x10^3/uL (140-400) Neutrophils (%) (Auto) 86 % (31-73) Lymphocytes (%) (Auto) 8 % (24-48) Monocytes (%) (Auto) 6 % (0-9) Eosinophils (%) (Auto) 0 % (0-3) Basophils (%) (Auto) 0 % (0-3) Neutrophils # (Auto) 7.7 x10^3/uL (1.8-7.7) Lymphocytes # (Auto) 0.7 x10^3/uL (1.0-4.8) Monocytes # (Auto) 0.5 x10^3/uL (0.0-1.1) Eosinophils # (Auto) 0.0 x10^3/uL (0.0-0.7) Basophils # (Auto) 0.0 x10^3/uL (0.0-0.2) Sodium Level 130 mmol/L (136-145) Potassium Level 4.8 mmol/L (3.5-5.1) Chloride Level 92 mmol/L (98-107) Carbon Dioxide Level 34 mmol/L (21-32) Anion Gap 4 (6-14) Blood Urea Nitrogen 16 mg/dL (8-26) Creatinine 0.9 mg/dL (0.7-1.3) Estimated GFR (Cockcroft-Gault) 86.1 Glucose Level 171 mg/dL (70-99) Calcium Level 9.2 mg/dL (8.5-10.1) Review of Systems Review of Systems SOA, retractions, no chest pain, no fever, no abdominal issues, the rest of 14 point review negative Assessment and Plan Assessmemt and Plan Problems Medical Problems: (1) COPD exacerbation Status: Acute (2) Hypercapnic respiratory failure Status: Acute Comment Review of Relevant I have reviewed the following items lukasz (where applicable) has been applied. Labs Laboratory Tests Test 7/18/19 08:00 12/19/18 08:10 12/19/18 11:25 12/19/18 14:40 White Blood Count 13.9 x10^3/uL (4.0-11.0) Red Blood Count 4.46 x10^6/uL (4.30-5.70) Hemoglobin 13.3 g/dL (13.0-17.5) Hematocrit 40.1 % (39.0-53.0) Mean Corpuscular Volume 90 fL (79-100) Mean Corpuscular Hemoglobin 30 pg (25-35) Mean Corpuscular Hemoglobin Concent 33 g/dL (31-37) Red Cell Distribution Width 13.8 % (11.5-14.5) Platelet Count 425 x10^3/uL (140-400) Neutrophils (%) (Auto) 78 % (31-73) Lymphocytes (%) (Auto) 7 % (24-48) Monocytes (%) (Auto) 15 % (0-9) Eosinophils (%) (Auto) 0 % (0-3) Basophils (%) (Auto) 0 % (0-3) Neutrophils # (Auto) 10.8 x10^3/uL (1.8-7.7) Lymphocytes # (Auto) 1.0 x10^3/uL (1.0-4.8) Monocytes # (Auto) 2.1 x10^3/uL (0.0-1.1) Eosinophils # (Auto) 0.0 x10^3/uL (0.0-0.7) Basophils # (Auto) 0.0 x10^3/uL (0.0-0.2) Segmented Neutrophils % 48 % (35-66) Band Neutrophils % 29 % (0-9) Lymphocytes % 6 % (24-48) Monocytes % 16 % (0-10) Basophils % 1 % (0-3) Toxic Granulation Slight Platelet Estimate Adequate (ADEQUATE) Sodium Level 129 mmol/L (136-145) Potassium Level 5.1 mmol/L (3.5-5.1) Chloride Level 88 mmol/L (98-107) Carbon Dioxide Level 33 mmol/L (21-32) Anion Gap 8 (6-14) Blood Urea Nitrogen 17 mg/dL (8-26) Creatinine 1.0 mg/dL (0.7-1.3) Estimated GFR (Cockcroft-Gault) 76.2 BUN/Creatinine Ratio 17 (6-20) Glucose Level 131 mg/dL (70-99) Calcium Level 9.9 mg/dL (8.5-10.1) Total Bilirubin 0.3 mg/dL (0.2-1.0) Aspartate Amino Transf (AST/SGOT) 26 U/L (15-37) Alanine Aminotransferase (ALT/SGPT) 19 U/L (16-63) Alkaline Phosphatase 84 U/L (46-116) Troponin I Quantitative < 0.017 ng/mL (0.000-0.055) < 0.017 ng/mL (0.000-0.055) < 0.017 ng/mL (0.000-0.055) YH-Qtd-V-Type Natriuretic Peptide 1803 pg/mL (0-124) Total Protein 8.2 g/dL (6.4-8.2) Albumin 3.0 g/dL (3.4-5.0) Albumin/Globulin Ratio 0.6 (1.0-1.7) O2 Saturation 96 % (92-99) Arterial Blood pH 7.24 (7.35-7.45) Arterial Blood pCO2 at Patient Temp 80 mmHg (35-46) Arterial Blood pO2 at Patient Temp 90 mmHg (65-108) Arterial Blood HCO3 34 mmol/L (21-28) Arterial Blood Base Excess 3 mmol/L (-3-3) FiO2 36% Test 12/19/18 15:05 12/20/18 03:40 O2 Saturation 93 % (92-99) Arterial Blood pH 7.35 (7.35-7.45) Arterial Blood pCO2 at Patient Temp 66 mmHg (35-46) Arterial Blood pO2 at Patient Temp 70 mmHg (65-108) Arterial Blood HCO3 36 mmol/L (21-28) Arterial Blood Base Excess 8 mmol/L (-3-3) FiO2 25 White Blood Count 8.9 x10^3/uL (4.0-11.0) Red Blood Count 3.84 x10^6/uL (4.30-5.70) Hemoglobin 11.4 g/dL (13.0-17.5) Hematocrit 34.9 % (39.0-53.0) Mean Corpuscular Volume 91 fL (79-100) Mean Corpuscular Hemoglobin 30 pg (25-35) Mean Corpuscular Hemoglobin Concent 33 g/dL (31-37) Red Cell Distribution Width 14.1 % (11.5-14.5) Platelet Count 364 x10^3/uL (140-400) Neutrophils (%) (Auto) 86 % (31-73) Lymphocytes (%) (Auto) 8 % (24-48) Monocytes (%) (Auto) 6 % (0-9) Eosinophils (%) (Auto) 0 % (0-3) Basophils (%) (Auto) 0 % (0-3) Neutrophils # (Auto) 7.7 x10^3/uL (1.8-7.7) Lymphocytes # (Auto) 0.7 x10^3/uL (1.0-4.8) Monocytes # (Auto) 0.5 x10^3/uL (0.0-1.1) Eosinophils # (Auto) 0.0 x10^3/uL (0.0-0.7) Basophils # (Auto) 0.0 x10^3/uL (0.0-0.2) Sodium Level 130 mmol/L (136-145) Potassium Level 4.8 mmol/L (3.5-5.1) Chloride Level 92 mmol/L (98-107) Carbon Dioxide Level 34 mmol/L (21-32) Anion Gap 4 (6-14) Blood Urea Nitrogen 16 mg/dL (8-26) Creatinine 0.9 mg/dL (0.7-1.3) Estimated GFR (Cockcroft-Gault) 86.1 Glucose Level 171 mg/dL (70-99) Calcium Level 9.2 mg/dL (8.5-10.1) Laboratory Tests Test 12/19/18 11:25 12/19/18 14:40 12/19/18 15:05 12/20/18 03:40 Troponin I Quantitative < 0.017 ng/mL (0.000-0.055) < 0.017 ng/mL (0.000-0.055) O2 Saturation 93 % (92-99) Arterial Blood pH 7.35 (7.35-7.45) Arterial Blood pCO2 at Patient Temp 66 mmHg (35-46) Arterial Blood pO2 at Patient Temp 70 mmHg (65-108) Arterial Blood HCO3 36 mmol/L (21-28) Arterial Blood Base Excess 8 mmol/L (-3-3) FiO2 25 White Blood Count 8.9 x10^3/uL (4.0-11.0) Red Blood Count 3.84 x10^6/uL (4.30-5.70) Hemoglobin 11.4 g/dL (13.0-17.5) Hematocrit 34.9 % (39.0-53.0) Mean Corpuscular Volume 91 fL (79-100) Mean Corpuscular Hemoglobin 30 pg (25-35) Mean Corpuscular Hemoglobin Concent 33 g/dL (31-37) Red Cell Distribution Width 14.1 % (11.5-14.5) Platelet Count 364 x10^3/uL (140-400) Neutrophils (%) (Auto) 86 % (31-73) Lymphocytes (%) (Auto) 8 % (24-48) Monocytes (%) (Auto) 6 % (0-9) Eosinophils (%) (Auto) 0 % (0-3) Basophils (%) (Auto) 0 % (0-3) Neutrophils # (Auto) 7.7 x10^3/uL (1.8-7.7) Lymphocytes # (Auto) 0.7 x10^3/uL (1.0-4.8) Monocytes # (Auto) 0.5 x10^3/uL (0.0-1.1) Eosinophils # (Auto) 0.0 x10^3/uL (0.0-0.7) Basophils # (Auto) 0.0 x10^3/uL (0.0-0.2) Sodium Level 130 mmol/L (136-145) Potassium Level 4.8 mmol/L (3.5-5.1) Chloride Level 92 mmol/L (98-107) Carbon Dioxide Level 34 mmol/L (21-32) Anion Gap 4 (6-14) Blood Urea Nitrogen 16 mg/dL (8-26) Creatinine 0.9 mg/dL (0.7-1.3) Estimated GFR (Cockcroft-Gault) 86.1 Glucose Level 171 mg/dL (70-99) Calcium Level 9.2 mg/dL (8.5-10.1) Medications Current Medications Albuterol/ Ipratropium (Duoneb) 3 ml 1X ONCE NEB Last administered on 12/19/18at 08:00; Start 12/19/18 at 08:00; Stop 12/19/18 at 08:04; Status DC Methylprednisolone Sodium Succinate (SOLU-Medrol 125MG VIAL) 125 mg 1X ONCE IV Last administered on 12/19/18 08:06; Start 12/19/18 at 08:00; Stop 12/19/18 at 08:04; Status DC Albuterol/ Ipratropium (Duoneb) 3 ml 1X ONCE NEB Last administered on 12/19/18at 08:00; Start 12/19/18 at 08:00; Stop 12/19/18 at 08:04; Status DC Albuterol/ Ipratropium (Duoneb) 3 ml Q4HRS W/A NEB Last administered on 12/20/18 07:34; Start 12/19/18 at 10:00 Methylprednisolone Sodium Succinate (SOLU-Medrol 40MG VIAL) 40 mg Q8HRS IV Last administered on 12/20/18 06:33; Start 12/19/18 at 14:00 Ondansetron HCl (Zofran) 4 mg PRN Q8HRS PRN IV NAUSEA/VOMITING; Start 12/19/18 at 08:30; Stop 12/19/18 at 08:36; Status DC Sodium Chloride 1,000 ml @ 125 mls/hr Q8H IV Last administered on 12/20/18 03:13; Start 12/19/18 at 08:27; Stop 12/20/18 at 08:26; Status DC Acetaminophen (Tylenol) 650 mg PRN Q4HRS PRN PO FEVER Last administered on 12/19/18at 17:11; Start 12/19/18 at 08:30; Stop 12/20/18 at 08:29; Status DC Ondansetron HCl (Zofran) 4 mg PRN Q6HRS PRN IV NAUSEA/VOMITING; Start 12/19/18 at 08:45 Guaifenesin (Robitussin Dm) 10 ml PRN Q6HRS PRN PO COUGH; Start 12/19/18 at 08:45 Benzonatate (Tessalon Perle) 100 mg [id number] PO Last administered on 12/20/18at 09:36; Start 12/19/18 at 09:00 Acetaminophen (Tylenol) 650 mg PRN Q4HRS PO ; Start 12/19/18 at 08:45 Famotidine (Pepcid) 20 mg HS PO Last administered on 12/19/18at 20:00; Start 12/19/18 at 21:00 Acetaminophen/ Hydrocodone Bitart (Lortab 5/325) 1 tab PRN Q6HRS PRN PO PAIN; Start 12/19/18 at 08:45; Stop 12/19/18 at 12:39; Status DC Ibuprofen (Motrin) 400 mg BID PO Last administered on 12/20/18 09:36; Start 12/19/18 at 09:00 Lorazepam (Ativan) 1 mg PRN DAILY PRN PO ANXIETY / AGITATION; Start 12/19/18 at 08:45; Stop 12/19/18 at 12:39; Status DC Pantoprazole Sodium (Protonix) 40 mg QHS PO Last administered on 12/19/18at 20:0 0; Start 12/19/18 at 21:00 Aripiprazole (Abilify) 2 mg DAILY PO Last administered on 12/20/18 09:36; Start 12/20/18 at 09:00 Vitamin D (Vitamin D3) 1,000 unit DAILY PO Last administered on 12/20/18 09:37; Start 12/19/18 at 21:00 Simvastatin (Zocor) 40 mg QHS PO Last administered on 12/19/18at 20:00; Start 12/19/18 at 21:00 Non-Formulary Medication (Tiotropium [place] (Spiriva)) 1 cap DAILY IH ; Start 12/19/18 at 09:00; Status UNV Tizanidine HCl (Zanaflex) 4 mg QHS PO Last administered on 12/19/18at 19:59; Start 12/19/18 at 10:45 Clonidine HCl (Catapres) 0.1 mg PRN Q1HR PRN PO HYPERTENSION; Start 12/19/18 at 08:45 Furosemide (Lasix) 20 mg 1X ONCE IVP Last administered on 12/19/18at 13:55; Start 12/19/18 at 13:30; Stop 12/19/18 at 13:31; Status DC Diphenhydramine HCl (Benadryl) 25 mg PRN QHS PRN PO INSOMNIA; Start 12/20/18 at 09:00 Active Scripts Active Prednisone (Prednisone) 10 Mg Tablet 10 Mg PO UD Take 4 tablets by mouth daily for 3 days, then take 3 tablets daily for 3 days, then take 2 tablet daily for 3 days, then take 1 tablet by mouth daily x 3 days, then stop. Advair 100-50 Diskus (Fluticasone/Salmeterol) 1 Each Disk.w.dev 1 Puff IH BID Albuterol Sulfate Neb Soln (Albuterol Sulfate) 2.5 Mg/3 Ml Vial.neb 2.5 Mg NEB PRN Q4HRS PRN Reported Zanaflex (Tizanidine Hcl) 4 Mg Tablet 1 Tab PO QHS Vitamin D (Cholecalciferol (Vitamin D3)) 1,000 Unit Capsule 1 Cap PO DAILY Ibuprofen 400 Mg Tablet 400 Mg PO BID Pepcid (Famotidine) 20 Mg Tablet 20 Mg PO HS Doxycycline Hyclate 100 Mg Tablet 1 Tab PO BID Spiriva (Tiotropium [place]) 18 Mcg Cap.w.dev 1 Cap IH DAILY Simvastatin 40 Mg Tablet 1 Tab PO QHS Protonix (Pantoprazole Sodium) 40 Mg Tablet. 1 Tab PO QHS Hydrocodone-Apap 5-325 (Hydrocodone Bit/Acetaminophen) 1 Each Tablet 1 Tab PO PRN Q6HRS PRN Loratadine 10 Mg Tablet 1 Tab PO DAILY Ativan (Lorazepam) 1 Mg Tablet 1 Mg PO PRN DAILY PRN Tylenol (Acetaminophen) 325 Mg Tablet 2 Tab PO PRN Q4HRS Abilify (Aripiprazole) 2 Mg Tablet 2 Mg PO DAILY Vitals/I & O Vital Sign - Last 24 Hours 12/19/18 12/19/18 12/19/18 12/19/18 11:30 11:50 12:26 12:35 Temp 98.1 98.1 Pulse 119 Resp 24 B/P (MAP) 131/84 (100) Pulse Ox 93 98 92 O2 Delivery Nasal Cannula Nasal Cannula Nasal Cannula BiPAP/CPAP O2 Flow Rate 3.0 3.0 3.0 12/19/18 12/19/18 12/19/18 12/19/18 15:05 15:24 19:34 19:35 Temp 97.8 98.6 97.8 98.6 Pulse 108 97 Resp 24 24 B/P (MAP) 103/72 (82) 124/81 (95) Pulse Ox 93 93 97 98 O2 Delivery BiPAP/CPAP BiPAP/CPAP Nasal Cannula Nasal Cannula O2 Flow Rate 3.0 4.0 12/19/18 12/19/18 12/19/18 12/20/18 20:00 23:29 23:58 03:23 Temp 97.7 97.7 Pulse 88 Resp 20 B/P (MAP) 110/77 (88) Pulse Ox 96 94 98 O2 Delivery Nasal Cannula Nasal Cannula BiPAP/CPAP BiPAP/CPAP O2 Flow Rate 3.0 2.0 12/20/18 12/20/18 12/20/18 03:44 07:36 07:38 Temp 98.0 98.5 98.0 98.5 Pulse 85 109 Resp 17 20 B/P (MAP) 111/71 (84) 174/106 (128) Pulse Ox 91 95 95 O2 Delivery BiPAP/CPAP Nasal Cannula Nasal Cannula O2 Flow Rate 2.0 2.0 Intake and Output 12/19/18 12/19/18 12/20/18 15:00 23:00 07:00 Intake Total 640 ml 240 ml Output Total 500 ml 750 ml Balance 140 ml -510 ml ANYI FORTE MD Dec 20, 2018 10:50
[2018-12-20 11:13] VITALS: BP 143/86
[2018-12-20 14:58] VITALS: BP 129/82
--- NOTE | 2018-12-20 15:16 | NUR ---
SW reviewed pt's medical chart and evaluated for potential dc needs. Pt is from LTC at [facility], phone: [phone], fax: [phone] and was admitted for chronic Obstructive Pulmonary Disease with acute exacerbation and CRF. Pt is on two liters of O2 and has PT/OT ordered. SW will continue to follow and be available for dc needs.
[2018-12-20 19:00] VITALS: BP 110/70
[2018-12-20] MEDS: FAMOTIDINE 20 MG TABLET. PO SCH (20:28)
[2018-12-20] MEDS: tiZANidine 4 MG TABLET. PO SCH (20:28)
[2018-12-20] MEDS: PANTOPRAZOLE 40 MG TABLET.DR. PO SCH (20:28)
[2018-12-20] MEDS: SIMVASTATIN 40 MG TABLET. PO SCH (20:29)
[2018-12-20 22:42] VITALS: BP 99/59
[2018-12-21 03:00] VITALS: BP 125/68
[2018-12-21] MEDS: methylPREDNISolone SOD SUCC PF 40 MG/ML VIAL. IV SCH ×3 (05:26→21:19)
[2018-12-21] MEDS: ACETAMINOPHEN 325 MG TABLET. PO PRN ×2 (06:02→11:47)
[2018-12-21] MEDS: IPRATRPIUM/ALBUTEROL 0.5/2.5MG 3 ML NEBU. NEB SCH ×4 (07:17→19:38)
[2018-12-21 07:42] VITALS: BP 130/69
[2018-12-21] MEDS: BENZONATATE 100 MG CAPSULE. PO SCH ×3 (08:34→20:32)
[2018-12-21] MEDS: IBUPROFEN 400 MG TABLET. PO SCH ×2 (08:34→20:32)
[2018-12-21] MEDS: ARIPiprazole 2 MG TABLET PO SCH (08:34)
[2018-12-21] MEDS: CHOLECALCIFEROL (VITAMIN D3) 1,000 UNIT TABLET PO SCH (08:34)
--- NOTE | 2018-12-21 10:29 | PDOC ---
PULMONARY PROGRESS NOTES Subjective used BIPAP most of last night. On NC this morning and subjectively notes improvement Vitals Vital Signs Date Time Temp Pulse Resp B/P (MAP) Pulse Ox O2 Delivery O2 Flow Rate FiO2 12/21/18 08:00 Nasal Cannula 3.0 12/21/18 07:42 98.5 87 18 130/69 (89) 98 98.5 General: Alert, Mild Distress Lungs: Other (markedly diminished breath sounds without wheezing, rhonchi or rubs) Cardiovascular: S1, S2 Abdomen: Soft, Non-tender Neuro Exam: Alert Extremities: No Edema Skin: Warm Labs Laboratory Tests Test 12/19/18 11:25 12/19/18 14:40 12/19/18 15:05 12/20/18 03:40 Troponin I Quantitative < 0.017 ng/mL (0.000-0.055) < 0.017 ng/mL (0.000-0.055) O2 Saturation 93 % (92-99) Arterial Blood pH 7.35 (7.35-7.45) Arterial Blood pCO2 at Patient Temp 66 mmHg (35-46) Arterial Blood pO2 at Patient Temp 70 mmHg (65-108) Arterial Blood HCO3 36 mmol/L (21-28) Arterial Blood Base Excess 8 mmol/L (-3-3) FiO2 25 White Blood Count 8.9 x10^3/uL (4.0-11.0) Red Blood Count 3.84 x10^6/uL (4.30-5.70) Hemoglobin 11.4 g/dL (13.0-17.5) Hematocrit 34.9 % (39.0-53.0) Mean Corpuscular Volume 91 fL (79-100) Mean Corpuscular Hemoglobin 30 pg (25-35) Mean Corpuscular Hemoglobin Concent 33 g/dL (31-37) Red Cell Distribution Width 14.1 % (11.5-14.5) Platelet Count 364 x10^3/uL (140-400) Neutrophils (%) (Auto) 86 % (31-73) Lymphocytes (%) (Auto) 8 % (24-48) Monocytes (%) (Auto) 6 % (0-9) Eosinophils (%) (Auto) 0 % (0-3) Basophils (%) (Auto) 0 % (0-3) Neutrophils # (Auto) 7.7 x10^3/uL (1.8-7.7) Lymphocytes # (Auto) 0.7 x10^3/uL (1.0-4.8) Monocytes # (Auto) 0.5 x10^3/uL (0.0-1.1) Eosinophils # (Auto) 0.0 x10^3/uL (0.0-0.7) Basophils # (Auto) 0.0 x10^3/uL (0.0-0.2) Sodium Level 130 mmol/L (136-145) Potassium Level 4.8 mmol/L (3.5-5.1) Chloride Level 92 mmol/L (98-107) Carbon Dioxide Level 34 mmol/L (21-32) Anion Gap 4 (6-14) Blood Urea Nitrogen 16 mg/dL (8-26) Creatinine 0.9 mg/dL (0.7-1.3) Estimated GFR (Cockcroft-Gault) 86.1 Glucose Level 171 mg/dL (70-99) Calcium Level 9.2 mg/dL (8.5-10.1) Test 12/20/18 10:00 Nasal Screen MRSA (PCR) Negative (Negative) Medications Active Scripts Medications Dose Route/Sig Max Daily Dose Days Date Category Dose Instructions Zanaflex (Tizanidine Hcl) 4 Mg Tablet 1 Tab PO QHS 12/11/17 Reported Vitamin D (Cholecalciferol (Vitamin D3)) 1,000 Unit Capsule 1 Cap PO DAILY 12/11/17 Reported Ibuprofen 400 Mg Tablet 400 Mg PO BID 12/11/17 Reported Pepcid (Famotidine) 20 Mg Tablet 20 Mg PO HS 12/11/17 Reported Doxycycline Hyclate 100 Mg Tablet 1 Tab PO BID 12/11/17 Reported Prednisone (Prednisone) 10 Mg Tablet 10 Mg PO UD 08/20/17 Rx Take 4 tablets by mouth daily for 3 days, then take 3 tablets daily for 3 days, then take 2 tablet daily for 3 days, then take 1 tablet by mouth daily x 3 days, then stop. Advair 100-50 Diskus (Fluticasone/Salmeterol) 1 Each Disk.w.dev 1 Puff IH BID 08/20/17 Rx Spiriva (Tiotropium [place]) 18 Mcg Cap.w.dev 1 Cap IH DAILY 02/14/17 Reported Simvastatin 40 Mg Tablet 1 Tab PO QHS 02/14/17 Reported Protonix (Pantoprazole Sodium) 40 Mg Tablet.dr 1 Tab PO QHS 02/14/17 Reported Hydrocodone-Apap 5-325 (Hydrocodone Bit/Acetaminophen) 1 Each Tablet 1 Tab PO PRN Q6HRS PRN 02/14/17 Reported Loratadine 10 Mg Tablet 1 Tab PO DAILY 02/14/17 Reported Ativan (Lorazepam) 1 Mg Tablet 1 Mg PO PRN DAILY PRN 02/14/17 Reported Tylenol (Acetaminophen) 325 Mg Tablet 2 Tab PO PRN Q4HRS 02/14/17 Reported Abilify (Aripiprazole) 2 Mg Tablet 2 Mg PO DAILY 02/14/17 Reported Albuterol Sulfate Neb Soln (Albuterol Sulfate) 2.5 Mg/3 Ml Vial.neb 2.5 Mg NEB PRN Q4HRS PRN 05/08/15 Rx Comments Admission CXR shows marked hyperexpansion Impression . 1. [id number] hypercapnic respiratory failure secondary to acute exacerbation of chronic obstructive pulmonary disease, improved. 2. Non-ischemic cardiomyopathy. Previous cardiac catheterization in 12/2017 with normal coronary arteries, but ejection fraction of 35% and end-diastolic pressure of 32. 3. Abnormal chest x-ray with marked hyperexpansion and slightly prominent vascular markings. 4. Suspect end stage COPD 5. ongoing tobacco abuse Plan . 1. Would continue bipap at night and low flow oxygen while awake. 2. Follow up ABGs improved 3. Avoid hyperoxia. 4. diuresis prn 5. Continue DuoNeb. 6. IV steroids with taper 7. off hydrocodone and lorazepam. 8. We will follow along with you. 9. discussed the extreme importance of complete tobacco cessation after discharge. DNR SYMONE THOMAS MD Dec 21, 2018 10:29
--- NOTE | 2018-12-21 11:07 | PDOC ---
PROGRESS NOTES Chief Complaint Chief Complaint severe COPD exacerbation-s/p NIPPV Mixed hypercapnic hypoxic respiratory failure Cachexia-BMI 18 Ex-smoker Reactive thrombocytosis Leukocytosis/SIRS Sinus tachycardia hyponatremia-likely SIADH like picture in a chronic COPDer History of Present Illness History of Present Illness Better today did not need the BiPAP No need for repeat ABG HAd severe retractions on admit and yesterday He is a resident of long-term care [place] He admits to me he is feeling better He chooses to be a DNR Plan: okay to be off telemetry Transfer to non telemetry floor Back to [facility] [place] likely Sunday This is the first I am seeing him feeling better and looking better Vitals Vitals Vital Signs Date Time Temp Pulse Resp B/P (MAP) Pulse Ox O2 Delivery O2 Flow Rate FiO2 12/21/18 08:00 Nasal Cannula 3.0 12/21/18 07:42 98.5 87 18 130/69 (89) 98 98.5 Physical Exam General: Alert, Oriented X3, Cooperative, severe distress, Other (cachectic looking with minimal subcutaneous tissue) Heart: Regular rate, Other (tachycardic) Lungs: Wheezing, Other (markedly diminished breath sounds without wheezing, rhonchi or rubs) Abdomen: Normal bowel sounds, Soft, No tenderness, No hepatosplenomegaly, No masses Extremities: No clubbing, No cyanosis, No edema, Normal pulses, No tenderness/swelling Skin: No rashes, No breakdown, No significant lesion Review of Systems Review of Systems A 14 point ROS was completed with the following noted as positive: Other systems reviewed and negative. \CONSTITUTIONAL: No fever or chills EYES: No recent changes SKIN: No rash or itching CARDIOVASCULAR: No chest pain, syncope, palpitations, or edema RESPIRATORY: No SOB or cough GASTROINTESTINAL: No nausea, vomiting or abdominal pain NEUROLOGICAL: No headaches or weakness ENDOCRINE: No cold or heat intolerance GENITOURINARY: No urgency or frequency of urination MUSCULOSKELETAL: No back pain or joint pain LYMPHATICS: No enlarged lymph nodes PSYCHIATRIC: No anxiety or depression Assessment and Plan Assessmemt and Plan Problems Medical Problems: (1) COPD exacerbation Status: Acute (2) Hypercapnic respiratory failure Status: Acute Comment Review of Relevant I have reviewed the following items lukasz (where applicable) has been applied. Labs Laboratory Tests Test 12/19/18 11:25 12/19/18 14:40 12/19/18 15:05 12/20/18 03:40 Troponin I Quantitative < 0.017 ng/mL (0.000-0.055) < 0.017 ng/mL (0.000-0.055) O2 Saturation 93 % (92-99) Arterial Blood pH 7.35 (7.35-7.45) Arterial Blood pCO2 at Patient Temp 66 mmHg (35-46) Arterial Blood pO2 at Patient Temp 70 mmHg (65-108) Arterial Blood HCO3 36 mmol/L (21-28) Arterial Blood Base Excess 8 mmol/L (-3-3) FiO2 25 White Blood Count 8.9 x10^3/uL (4.0-11.0) Red Blood Count 3.84 x10^6/uL (4.30-5.70) Hemoglobin 11.4 g/dL (13.0-17.5) Hematocrit 34.9 % (39.0-53.0) Mean Corpuscular Volume 91 fL (79-100) Mean Corpuscular Hemoglobin 30 pg (25-35) Mean Corpuscular Hemoglobin Concent 33 g/dL (31-37) Red Cell Distribution Width 14.1 % (11.5-14.5) Platelet Count 364 x10^3/uL (140-400) Neutrophils (%) (Auto) 86 % (31-73) Lymphocytes (%) (Auto) 8 % (24-48) Monocytes (%) (Auto) 6 % (0-9) Eosinophils (%) (Auto) 0 % (0-3) Basophils (%) (Auto) 0 % (0-3) Neutrophils # (Auto) 7.7 x10^3/uL (1.8-7.7) Lymphocytes # (Auto) 0.7 x10^3/uL (1.0-4.8) Monocytes # (Auto) 0.5 x10^3/uL (0.0-1.1) Eosinophils # (Auto) 0.0 x10^3/uL (0.0-0.7) Basophils # (Auto) 0.0 x10^3/uL (0.0-0.2) Sodium Level 130 mmol/L (136-145) Potassium Level 4.8 mmol/L (3.5-5.1) Chloride Level 92 mmol/L (98-107) Carbon Dioxide Level 34 mmol/L (21-32) Anion Gap 4 (6-14) Blood Urea Nitrogen 16 mg/dL (8-26) Creatinine 0.9 mg/dL (0.7-1.3) Estimated GFR (Cockcroft-Gault) 86.1 Glucose Level 171 mg/dL (70-99) Calcium Level 9.2 mg/dL (8.5-10.1) Test 12/20/18 10:00 Nasal Screen MRSA (PCR) Negative (Negative) Medications Current Medications Albuterol/ Ipratropium (Duoneb) 3 ml 1X ONCE NEB Last administered on 12/19/18at 08:00; Start 12/19/18 at 08:00; Stop 12/19/18 at 08:04; Status DC Methylprednisolone Sodium Succinate (SOLU-Medrol 125MG VIAL) 125 mg 1X ONCE IV Last administered on 12/19/18at 08:06; Start 12/19/18 at 08:00; Stop 12/19/18 at 08:04; Status DC Albuterol/ Ipratropium (Duoneb) 3 ml 1X ONCE NEB Last administered on 12/19/18at 08:00; Start 12/19/18 at 08:00; Stop 12/19/18 at 08:04; Status DC Albuterol/ Ipratropium (Duoneb) 3 ml Q4HRS W/A NEB Last administered on 12/21/18at 07:17; Start 12/19/18 at 10:00 Methylprednisolone Sodium Succinate (SOLU-Medrol 40MG VIAL) 40 mg Q8HRS IV Last administered on 12/21/18at 05:26; Start 12/19/18 at 14:00 Ondansetron HCl (Zofran) 4 mg PRN Q8HRS PRN IV NAUSEA/VOMITING; Start 12/19/18 at 08:30; Stop 12/19/18 at 08:36; Status DC Sodium Chloride 1,000 ml @ 125 mls/hr Q8H IV Last administered on 12/20/18at 03:13; Start 12/19/18 at 08:27; Stop 12/20/18 at 08:26; Status DC Acetaminophen (Tylenol) 650 mg PRN Q4HRS PRN PO FEVER Last administered on 12/19/18at 17:11; Start 12/19/18 at 08:30; Stop 12/20/18 at 08:29; Status DC Ondansetron HCl (Zofran) 4 mg PRN Q6HRS PRN IV NAUSEA/VOMITING; Start 12/19/18 at 08:45 Guaifenesin (Robitussin Dm) 10 ml PRN Q6HRS PRN PO COUGH; Start 12/19/18 at 08:45 Benzonatate (Tessalon Per[place]) 100 mg [id number] PO Last administered on 12/21/18 08:34; Start 12/19/18 at 09:00 Acetaminophen (Tylenol) 650 mg PRN Q4HRS PO ; Start 12/19/18 at 08:45; Stop 12/21/18 at 05:30; Status DC Famotidine (Pepcid) 20 mg HS PO Last administered on 12/20/18 20:28; Start 12/19/18 at 21:00 Acetaminophen/ Hydrocodone Bitart (Lortab 5/325) 1 tab PRN Q6HRS PRN PO PAIN; Start 12/19/18 at 08:45; Stop 12/19/18 at 12:39; Status DC Ibuprofen (Motrin) 400 mg BID PO Last administered on 12/21/18 08:34; Start 12/19/18 at 09:00 Lorazepam (Ativan) 1 mg PRN DAILY PRN PO ANXIETY / AGITATION; Start 12/19/18 at 08:45; Stop 12/19/18 at 12:39; Status DC Pantoprazole Sodium (Protonix) 40 mg QHS PO Last administered on 12/20/18 20:28; Start 12/19/18 at 21:00 Aripiprazole (Abilify) 2 mg DAILY PO Last administered on 12/21/18 08:34; Start 12/20/18 at 09:00 Vitamin D (Vitamin D3) 1,000 unit DAILY PO Last administered on 12/21/18 08:34; Start 12/19/18 at 21:00 Simvastatin (Zocor) 40 mg QHS PO Last administered on 12/20/18 20:29; Start 12/19/18 at 21:00 Non-Formulary Medication (Tiotropium [place] (Spiriva)) 1 cap DAILY IH ; Start 12/19/18 at 09:00; Status UNV Tizanidine HCl (Zanaflex) 4 mg QHS PO Last administered on 12/20/18at 20:28; Start 12/19/18 at 10:45 Clonidine HCl (Catapres) 0.1 mg PRN Q1HR PRN PO HYPERTENSION; Start 12/19/18 at 08:45 Furosemide (Lasix) 20 mg 1X ONCE IVP Last administered on 12/19/18at 13:55; Start 12/19/18 at 13:30; Stop 12/19/18 at 13:31; Status DC Diphenhydramine HCl (Benadryl) 25 mg PRN QHS PRN PO INSOMNIA; Start 12/20/18 at 09:00 Acetaminophen (Tylenol) 650 mg PRN Q4HRS PRN PO MILD PAIN / TEMP Last administered on 12/21/18at 06:02; Start 12/21/18 at 05:45 Active Scripts Active Prednisone (Prednisone) 10 Mg Tablet 10 Mg PO UD Take 4 tablets by mouth daily for 3 days, then take 3 tablets daily for 3 days, then take 2 tablet daily for 3 days, then take 1 tablet by mouth daily x 3 days, then stop. Advair 100-50 Diskus (Fluticasone/Salmeterol) 1 Each Disk.w.dev 1 Puff IH BID Albuterol Sulfate Neb Soln (Albuterol Sulfate) 2.5 Mg/3 Ml Vial.neb 2.5 Mg NEB PRN Q4HRS PRN Reported Zanaflex (Tizanidine Hcl) 4 Mg Tablet 1 Tab PO QHS Vitamin D (Cholecalciferol (Vitamin D3)) 1,000 Unit Capsule 1 Cap PO DAILY Ibuprofen 400 Mg Tablet 400 Mg PO BID Pepcid (Famotidine) 20 Mg Tablet 20 Mg PO HS Doxycycline Hyclate 100 Mg Tablet 1 Tab PO BID Spiriva (Tiotropium [place]) 18 Mcg Cap.w.dev 1 Cap IH DAILY Simvastatin 40 Mg Tablet 1 Tab PO QHS Protonix (Pantoprazole Sodium) 40 Mg Tablet.dr 1 Tab PO QHS Hydrocodone-Apap 5-325 (Hydrocodone Bit/Acetaminophen) 1 Each Tablet 1 Tab PO PRN Q6HRS PRN Loratadine 10 Mg Tablet 1 Tab PO DAILY Ativan (Lorazepam) 1 Mg Tablet 1 Mg PO PRN DAILY PRN Tylenol (Acetaminophen) 325 Mg Tablet 2 Tab PO PRN Q4HRS Abilify (Aripiprazole) 2 Mg Tablet 2 Mg PO DAILY Vitals/I & O Vital Sign - Last 24 Hours 12/20/18 12/20/18 12/20/18 12/20/18 11:13 11:33 14:58 15:34 Temp 98.5 98.0 98.5 98.0 Pulse 100 98 Resp 18 16 B/P (MAP) 143/86 (105) 129/82 (98) Pulse Ox 98 95 O2 Delivery Nasal Cannula Nasal Cannula Nasal Cannula Nasal Cannula O2 Flow Rate 2.0 2.0 2.0 2.0 12/20/18 12/20/18 12/20/18 12/20/18 19:00 19:51 20:00 22:42 Temp 98.4 98.1 98.4 98.1 Pulse 92 84 Resp 18 B/P (MAP) 110/70 (83) 99/59 (72) Pulse Ox 96 96 98 O2 Delivery Nasal Cannula Nasal Cannula Nasal Cannula Nasal Cannula O2 Flow Rate 2.0 2.0 3.0 3.0 12/20/18 12/21/18 12/21/18 12/21/18 23:27 03:00 07:18 07:42 Temp 98.6 98.5 98.6 98.5 Pulse 78 87 Resp 18 B/P (MAP) 125/68 (87) 130/69 (89) Pulse Ox 92 98 98 O2 Delivery BiPAP/CPAP Nasal Cannula Nasal Cannula Nasal Cannula O2 Flow Rate 3.0 3.0 3.0 12/21/18 08:00 O2 Delivery Nasal Cannula O2 Flow Rate 3.0 Intake and Output 12/20/18 12/20/18 12/21/18 14:59 22:59 06:59 Intake Total 150 ml 600 ml Output Total 950 ml Balance -950 ml 150 ml 600 ml ANYI FORTE MD Dec 21, 2018 11:07
[2018-12-21 11:15] VITALS: BP 103/63
[2018-12-21 14:10] LABS: BASE EXCESS ABG 8 mmol/L (-3-3); HCO3 ABG 33 mmol/L (21-28); PCO2 ABG 47 mmHg (35-46); PO2 ABG 132 mmHg (65-108); SAT O2 ABG 98 % (92-99)
[2018-12-21 14:11] LABS: FIO2 ABG 36
[2018-12-21 15:08] VITALS: BP 126/76
[2018-12-21 19:41] VITALS: BP 135/74
[2018-12-21] MEDS: PANTOPRAZOLE 40 MG TABLET.DR. PO SCH (20:32)
[2018-12-21] MEDS: FAMOTIDINE 20 MG TABLET. PO SCH (20:32)
[2018-12-21] MEDS: tiZANidine 4 MG TABLET. PO SCH (20:32)
[2018-12-21] MEDS: SIMVASTATIN 40 MG TABLET. PO SCH (20:32)
[2018-12-21 23:12] VITALS: BP 118/74
[2018-12-22 02:51] VITALS: BP 110/75
[2018-12-22] MEDS: methylPREDNISolone SOD SUCC PF 40 MG/ML VIAL. IV SCH (05:34)
[2018-12-22] MEDS: ACETAMINOPHEN 325 MG TABLET. PO PRN (05:38)
[2018-12-22 06:40] VITALS: BP 133/86
[2018-12-22 07:14] LABS: BASO % 0 % (0-3); EOS % 0 % (0-3); HEMATOCRIT 37.4 % (39.0-53.0); HEMOGLOBIN 12.1 g/dL (13.0-17.5); LYMPH # 0.9 x10^3/uL (1.0-4.8); LYMPH % 7 % (24-48); MEAN CORPUSCULAR HEMOGLOBIN 29 pg (25-35); MEAN CORPUSCULAR HGB CONC 32 g/dL (31-37); MEAN CORPUSCULAR VOLUME 91 fL (79-100); MONO # 1.4 x10^3/uL (0.0-1.1); MONO % 11 % (0-9); NEUT # 10.7 x10^3/uL (1.8-7.7); NEUT % 83 % (31-73); PLATELET COUNT 399 x10^3/uL (140-400); RED CELL DISTRIBUTION WIDTH 14.2 % (11.5-14.5); WHITE BLOOD COUNT 12.9 x10^3/uL (4.0-11.0)
[2018-12-22 07:26] LABS: CALCIUM 9.7 mg/dL (8.5-10.1); CREATININE 0.9 mg/dL (0.7-1.3); GFR 86.1; POTASSIUM 4.9 mmol/L (3.5-5.1)
[2018-12-22] MEDS: IPRATRPIUM/ALBUTEROL 0.5/2.5MG 3 ML NEBU. NEB SCH ×4 (07:32→18:08)
[2018-12-22] MEDS: CHOLECALCIFEROL (VITAMIN D3) 1,000 UNIT TABLET PO SCH (08:30)
[2018-12-22] MEDS: BENZONATATE 100 MG CAPSULE. PO SCH ×3 (08:30→21:20)
[2018-12-22] MEDS: ARIPiprazole 2 MG TABLET PO SCH (08:31)
[2018-12-22] MEDS: IBUPROFEN 400 MG TABLET. PO SCH ×2 (08:31→21:21)
[2018-12-22 11:00] VITALS: BP 118/79
--- NOTE | 2018-12-22 11:28 | PDOC ---
PROGRESS NOTES Chief Complaint Chief Complaint severe COPD exacerbation-s/p NIPPV Mixed hypercapnic hypoxic respiratory failure Cachexia-BMI 18 Ex-smoker Reactive thrombocytosis Leukocytosis/SIRS Sinus tachycardia hyponatremia-likely SIADH like picture in a chronic COPDer History of Present Illness History of Present Illness transferred from 6th floor to 8 Some retractions today Up in chair He knows he has advanced COPD - has 2 concentrators in LTC [place]? He is actually hospice candidate Two ABGs done with showing improvement of the CO2 but still high-66 Plan: DNR I would rather have the BiPAP preferably at bedside ABG now, retractions Continue other pulmonary meds Labs tomorrow He verifies a DNR status Check a sedimentation rate in tomorrow's labs Hemoglobin 12, WBC 12 on steroids-sodium 134 and a COPD er Back to [place] on discharge dw Him and RN lisette Vitals Vitals Vital Signs Date Time Temp Pulse Resp B/P (MAP) Pulse Ox O2 Delivery O2 Flow Rate FiO2 12/22/18 11:00 98.1 76 20 118/79 (92) 96 Nasal Cannula 2.0 98.1 Physical Exam General: Alert, Oriented X3, Cooperative, severe distress, Other (cachectic looking with minimal subcutaneous tissue) Heart: Regular rate, Other (tachycardic) Lungs: Wheezing, Other (markedly diminished breath sounds without wheezing, rhonchi or rubs) Abdomen: Normal bowel sounds, Soft, No tenderness, No hepatosplenomegaly, No masses Extremities: No clubbing, No cyanosis, No edema, Normal pulses, No tenderness/swelling Skin: No rashes, No breakdown, No significant lesion Labs LABS Laboratory Tests Test 12/22/18 06:55 White Blood Count 12.9 x10^3/uL (4.0-11.0) Red Blood Count 4.10 x10^6/uL (4.30-5.70) Hemoglobin 12.1 g/dL (13.0-17.5) Hematocrit 37.4 % (39.0-53.0) Mean Corpuscular Volume 91 fL (79-100) Mean Corpuscular Hemoglobin 29 pg (25-35) Mean Corpuscular Hemoglobin Concent 32 g/dL (31-37) Red Cell Distribution Width 14.2 % (11.5-14.5) Platelet Count 399 x10^3/uL (140-400) Neutrophils (%) (Auto) 83 % (31-73) Lymphocytes (%) (Auto) 7 % (24-48) Monocytes (%) (Auto) 11 % (0-9) Eosinophils (%) (Auto) 0 % (0-3) Basophils (%) (Auto) 0 % (0-3) Neutrophils # (Auto) 10.7 x10^3/uL (1.8-7.7) Lymphocytes # (Auto) 0.9 x10^3/uL (1.0-4.8) Monocytes # (Auto) 1.4 x10^3/uL (0.0-1.1) Eosinophils # (Auto) 0.0 x10^3/uL (0.0-0.7) Basophils # (Auto) 0.0 x10^3/uL (0.0-0.2) Erythrocyte Sedimentation Rate 36 (0-15) Sodium Level 134 mmol/L (136-145) Potassium Level 4.9 mmol/L (3.5-5.1) Chloride Level 94 mmol/L (98-107) Carbon Dioxide Level 38 mmol/L (21-32) Anion Gap 2 (6-14) Blood Urea Nitrogen 18 mg/dL (8-26) Creatinine 0.9 mg/dL (0.7-1.3) Estimated GFR (Cockcroft-Gault) 86.1 Glucose Level 126 mg/dL (70-99) Calcium Level 9.7 mg/dL (8.5-10.1) Review of Systems Review of Systems SOA, easy fatigability or tiredness or SOA and exertion, no chest pain, no fever, no abdominal symptoms, the rest of ROS 14 point negative Assessment and Plan Assessmemt and Plan Problems Medical Problems: (1) COPD exacerbation Status: Acute (2) Hypercapnic respiratory failure Status: Acute Comment Review of Relevant I have reviewed the following items lukasz (where applicable) has been applied. Labs Laboratory Tests Test 12/22/18 06:55 White Blood Count 12.9 x10^3/uL (4.0-11.0) Red Blood Count 4.10 x10^6/uL (4.30-5.70) Hemoglobin 12.1 g/dL (13.0-17.5) Hematocrit 37.4 % (39.0-53.0) Mean Corpuscular Volume 91 fL (79-100) Mean Corpuscular Hemoglobin 29 pg (25-35) Mean Corpuscular Hemoglobin Concent 32 g/dL (31-37) Red Cell Distribution Width 14.2 % (11.5-14.5) Platelet Count 399 x10^3/uL (140-400) Neutrophils (%) (Auto) 83 % (31-73) Lymphocytes (%) (Auto) 7 % (24-48) Monocytes (%) (Auto) 11 % (0-9) Eosinophils (%) (Auto) 0 % (0-3) Basophils (%) (Auto) 0 % (0-3) Neutrophils # (Auto) 10.7 x10^3/uL (1.8-7.7) Lymphocytes # (Auto) 0.9 x10^3/uL (1.0-4.8) Monocytes # (Auto) 1.4 x10^3/uL (0.0-1.1) Eosinophils # (Auto) 0.0 x10^3/uL (0.0-0.7) Basophils # (Auto) 0.0 x10^3/uL (0.0-0.2) Erythrocyte Sedimentation Rate 36 (0-15) Sodium Level 134 mmol/L (136-145) Potassium Level 4.9 mmol/L (3.5-5.1) Chloride Level 94 mmol/L (98-107) Carbon Dioxide Level 38 mmol/L (21-32) Anion Gap 2 (6-14) Blood Urea Nitrogen 18 mg/dL (8-26) Creatinine 0.9 mg/dL (0.7-1.3) Estimated GFR (Cockcroft-Gault) 86.1 Glucose Level 126 mg/dL (70-99) Calcium Level 9.7 mg/dL (8.5-10.1) Laboratory Tests Test 12/22/18 06:55 White Blood Count 12.9 x10^3/uL (4.0-11.0) Red Blood Count 4.10 x10^6/uL (4.30-5.70) Hemoglobin 12.1 g/dL (13.0-17.5) Hematocrit 37.4 % (39.0-53.0) Mean Corpuscular Volume 91 fL (79-100) Mean Corpuscular Hemoglobin 29 pg (25-35) Mean Corpuscular Hemoglobin Concent 32 g/dL (31-37) Red Cell Distribution Width 14.2 % (11.5-14.5) Platelet Count 399 x10^3/uL (140-400) Neutrophils (%) (Auto) 83 % (31-73) Lymphocytes (%) (Auto) 7 % (24-48) Monocytes (%) (Auto) 11 % (0-9) Eosinophils (%) (Auto) 0 % (0-3) Basophils (%) (Auto) 0 % (0-3) Neutrophils # (Auto) 10.7 x10^3/uL (1.8-7.7) Lymphocytes # (Auto) 0.9 x10^3/uL (1.0-4.8) Monocytes # (Auto) 1.4 x10^3/uL (0.0-1.1) Eosinophils # (Auto) 0.0 x10^3/uL (0.0-0.7) Basophils # (Auto) 0.0 x10^3/uL (0.0-0.2) Erythrocyte Sedimentation Rate 36 (0-15) Sodium Level 134 mmol/L (136-145) Potassium Level 4.9 mmol/L (3.5-5.1) Chloride Level 94 mmol/L (98-107) Carbon Dioxide Level 38 mmol/L (21-32) Anion Gap 2 (6-14) Blood Urea Nitrogen 18 mg/dL (8-26) Creatinine 0.9 mg/dL (0.7-1.3) Estimated GFR (Cockcroft-Gault) 86.1 Glucose Level 126 mg/dL (70-99) Calcium Level 9.7 mg/dL (8.5-10.1) Medications Current Medications Albuterol/ Ipratropium (Duoneb) 3 ml 1X ONCE NEB Last administered on 12/19/18at 08:00; Start 12/19/18 at 08:00; Stop 12/19/18 at 08:04; Status DC Methylprednisolone Sodium Succinate (SOLU-Medrol 125MG VIAL) 125 mg 1X ONCE IV Last administered on 12/19/18at 08:06; Start 12/19/18 at 08:00; Stop 12/19/18 at 08:04; Status DC Albuterol/ Ipratropium (Duoneb) 3 ml 1X ONCE NEB Last administered on 12/19/18at 08:00; Start 12/19/18 at 08:00; Stop 12/19/18 at 08:04; Status DC Albuterol/ Ipratropium (Duoneb) 3 ml Q4HRS W/A NEB Last administered on 12/22/18at 07:32; Start 12/19/18 at 10:00 Methylprednisolone Sodium Succinate (SOLU-Medrol 40MG VIAL) 40 mg Q8HRS IV Last administered on 12/22/18at 05:34; Start 12/19/18 at 14:00 Ondansetron HCl (Zofran) 4 mg PRN Q8HRS PRN IV NAUSEA/VOMITING; Start 12/19/18 at 08:30; Stop 12/19/18 at 08:36; Status DC Sodium Chloride 1,000 ml @ 125 mls/hr Q8H IV Last administered on 12/20/18at 03:13; Start 12/19/18 at 08:27; Stop 12/20/18 at 08:26; Status DC Acetaminophen (Tylenol) 650 mg PRN Q4HRS PRN PO FEVER Last administered on 12/19/18at 17:11; Start 12/19/18 at 08:30; Stop 12/20/18 at 08:29; Status DC Ondansetron HCl (Zofran) 4 mg PRN Q6HRS PRN IV NAUSEA/VOMITING; Start 12/19/18 at 08:45 Guaifenesin (Robitussin Dm) 10 ml PRN Q6HRS PRN PO COUGH; Start 12/19/18 at 08:45 Benzonatate (Tessalon Perle) 100 mg [id number] PO Last administered on 12/22/18at 08:30; Start 12/19/18 at 09:00 Acetaminophen (Tylenol) 650 mg PRN Q4HRS PO ; Start 12/19/18 at 08:45; Stop 12/21/18 at 05:30; Status DC Famotidine (Pepcid) 20 mg HS PO Last administered on 12/21/18at 20:32; Start 12/19/18 at 21:00 Acetaminophen/ Hydrocodone Bitart (Lortab 5/325) 1 tab PRN Q6HRS PRN PO PAIN; Start 12/19/18 at 08:45; Stop 12/19/18 at 12:39; Status DC Ibuprofen (Motrin) 400 mg BID PO Last administered on 12/22/18 08:31; Start 12/19/18 at 09:00 Lorazepam (Ativan) 1 mg PRN DAILY PRN PO ANXIETY / AGITATION; Start 12/19/18 at 08:45; Stop 12/19/18 at 12:39; Status DC Pantoprazole Sodium (Protonix) 40 mg QHS PO Last administered on 12/21/18 20:3 2; Start 12/19/18 at 21:00 Aripiprazole (Abilify) 2 mg DAILY PO Last administered on 12/22/18 08:31; Start 12/20/18 at 09:00 Vitamin D (Vitamin D3) 1,000 unit DAILY PO Last administered on 12/22/18 08:30; Start 12/19/18 at 21:00 Simvastatin (Zocor) 40 mg QHS PO Last administered on 12/21/18 20:32; Start 12/19/18 at 21:00 Non-Formulary Medication (Tiotropium [place] (Spiriva)) 1 cap DAILY IH ; Start 12/19/18 at 09:00; Status UNV Tizanidine HCl (Zanaflex) 4 mg QHS PO Last administered on 12/21/18 20:32; Start 12/19/18 at 10:45 Clonidine HCl (Catapres) 0.1 mg PRN Q1HR PRN PO HYPERTENSION; Start 12/19/18 at 08:45 Furosemide (Lasix) 20 mg 1X ONCE IVP Last administered on 12/19/18 13:55; Start 12/19/18 at 13:30; Stop 12/19/18 at 13:31; Status DC Diphenhydramine HCl (Benadryl) 25 mg PRN QHS PRN PO INSOMNIA; Start 12/20/18 at 09:00 Acetaminophen (Tylenol) 650 mg PRN Q4HRS PRN PO MILD PAIN / TEMP Last administered on 12/22/18 05:38; Start 12/21/18 at 05:45 Active Scripts Active Prednisone (Prednisone) 10 Mg Tablet 10 Mg PO UD Take 4 tablets by mouth daily for 3 days, then take 3 tablets daily for 3 days, then take 2 tablet daily for 3 days, then take 1 tablet by mouth daily x 3 days, then stop. Advair 100-50 Diskus (Fluticasone/Salmeterol) 1 Each Disk.w.dev 1 Puff IH BID Albuterol Sulfate Neb Soln (Albuterol Sulfate) 2.5 Mg/3 Ml Vial.neb 2.5 Mg NEB PRN Q4HRS PRN Reported Zanaflex (Tizanidine Hcl) 4 Mg Tablet 1 Tab PO QHS Vitamin D (Cholecalciferol (Vitamin D3)) 1,000 Unit Capsule 1 Cap PO DAILY Ibuprofen 400 Mg Tablet 400 Mg PO BID Pepcid (Famotidine) 20 Mg Tablet 20 Mg PO HS Doxycycline Hyclate 100 Mg Tablet 1 Tab PO BID Spiriva (Tiotropium [place]) 18 Mcg Cap.w.dev 1 Cap IH DAILY Simvastatin 40 Mg Tablet 1 Tab PO QHS Protonix (Pantoprazole Sodium) 40 Mg Tablet.dr 1 Tab PO QHS Hydrocodone-Apap 5-325 (Hydrocodone Bit/Acetaminophen) 1 Each Tablet 1 Tab PO PRN Q6HRS PRN Loratadine 10 Mg Tablet 1 Tab PO DAILY Ativan (Lorazepam) 1 Mg Tablet 1 Mg PO PRN DAILY PRN Tylenol (Acetaminophen) 325 Mg Tablet 2 Tab PO PRN Q4HRS Abilify (Aripiprazole) 2 Mg Tablet 2 Mg PO DAILY Vitals/I & O Vital Sign - Last 24 Hours 12/21/18 12/21/18 12/21/18 12/21/18 11:31 15:08 16:20 19:38 Temp 98.2 98.2 Pulse 76 Resp 18 B/P (MAP) 126/76 (93) Pulse Ox 96 98 O2 Delivery Nasal Cannula Nasal Cannula Nasal Cannula Nasal Cannula O2 Flow Rate 3.0 3.0 2.0 2.0 12/21/18 12/21/18 12/21/18 12/21/18 19:41 20:00 23:00 23:12 Temp 98.8 98.0 98.8 98.0 Pulse 82 77 Resp 20 19 B/P (MAP) 135/74 (94) 118/74 (89) Pulse Ox 95 98 O2 Delivery Nasal Cannula Nasal Cannula Nasal Cannula Nasal Cannula O2 Flow Rate 3.0 3.0 3.0 2.0 7/12/22/18 12/22/18 12/22/18 02:51 06:40 07:33 08:00 Temp 98.4 97.8 98.4 97.8 Pulse 82 71 Resp 16 19 B/P (MAP) 110/75 (87) 133/86 (102) Pulse Ox 97 96 98 O2 Delivery Nasal Cannula Nasal Cannula Nasal Cannula Nasal Cannula O2 Flow Rate 3.0 3.0 2.0 3.0 12/22/18 11:00 Temp 98.1 98.1 Pulse 76 Resp 20 B/P (MAP) 118/79 (92) Pulse Ox 96 O2 Delivery Nasal Cannula O2 Flow Rate 2.0 Intake and Output 12/21/18 12/21/18 12/22/18 15:00 23:00 07:00 Intake Total 600 ml 850 ml 0 ml Output Total 750 ml Balance 600 ml 850 ml -750 ml ANYI FORTE MD Dec 22, 2018 11:28
[2018-12-22 12:14] LABS: BASE EXCESS ABG 12 mmol/L (-3-3); HCO3 ABG 40 mmol/L (21-28); PO2 ABG 69 mmHg (65-108); SAT O2 ABG 93 % (92-99)
[2018-12-22 12:18] LABS: FIO2 ABG 28; PCO2 ABG 70 mmHg (35-46)
--- NOTE | 2018-12-22 13:11 | PDOC ---
PULMONARY PROGRESS NOTES Subjective feels better, less short of breath. declined BIPAP last night. Vitals Vital Signs Date Time Temp Pulse Resp B/P (MAP) Pulse Ox O2 Delivery O2 Flow Rate FiO2 12/22/18 12:01 Nasal Cannula 2.0 12/22/18 11:00 98.1 76 20 118/79 (92) 96 98.1 General: Alert, Oriented X4, No acute distress, Mild Distress Lungs: Other (markedly diminished breath sounds without wheezing, rhonchi or rubs) Cardiovascular: S1, S2 Abdomen: Soft, Non-tender Neuro Exam: Alert Extremities: No Edema Skin: Warm Labs Laboratory Tests Test 12/22/18 06:55 12/22/18 12:05 White Blood Count 12.9 x10^3/uL (4.0-11.0) Red Blood Count 4.10 x10^6/uL (4.30-5.70) Hemoglobin 12.1 g/dL (13.0-17.5) Hematocrit 37.4 % (39.0-53.0) Mean Corpuscular Volume 91 fL (79-100) Mean Corpuscular Hemoglobin 29 pg (25-35) Mean Corpuscular Hemoglobin Concent 32 g/dL (31-37) Red Cell Distribution Width 14.2 % (11.5-14.5) Platelet Count 399 x10^3/uL (140-400) Neutrophils (%) (Auto) 83 % (31-73) Lymphocytes (%) (Auto) 7 % (24-48) Monocytes (%) (Auto) 11 % (0-9) Eosinophils (%) (Auto) 0 % (0-3) Basophils (%) (Auto) 0 % (0-3) Neutrophils # (Auto) 10.7 x10^3/uL (1.8-7.7) Lymphocytes # (Auto) 0.9 x10^3/uL (1.0-4.8) Monocytes # (Auto) 1.4 x10^3/uL (0.0-1.1) Eosinophils # (Auto) 0.0 x10^3/uL (0.0-0.7) Basophils # (Auto) 0.0 x10^3/uL (0.0-0.2) Erythrocyte Sedimentation Rate 36 (0-15) Sodium Level 134 mmol/L (136-145) Potassium Level 4.9 mmol/L (3.5-5.1) Chloride Level 94 mmol/L (98-107) Carbon Dioxide Level 38 mmol/L (21-32) Anion Gap 2 (6-14) Blood Urea Nitrogen 18 mg/dL (8-26) Creatinine 0.9 mg/dL (0.7-1.3) Estimated GFR (Cockcroft-Gault) 86.1 Glucose Level 126 mg/dL (70-99) Calcium Level 9.7 mg/dL (8.5-10.1) O2 Saturation 93 % (92-99) Arterial Blood pH 7.38 (7.35-7.45) Arterial Blood pCO2 at Patient Temp 70 mmHg (35-46) Arterial Blood pO2 at Patient Temp 69 mmHg (65-108) Arterial Blood HCO3 40 mmol/L (21-28) Arterial Blood Base Excess 12 mmol/L (-3-3) FiO2 28 Laboratory Tests Test 12/22/18 06:55 12/22/18 12:05 White Blood Count 12.9 x10^3/uL (4.0-11.0) Red Blood Count 4.10 x10^6/uL (4.30-5.70) Hemoglobin 12.1 g/dL (13.0-17.5) Hematocrit 37.4 % (39.0-53.0) Mean Corpuscular Volume 91 fL (79-100) Mean Corpuscular Hemoglobin 29 pg (25-35) Mean Corpuscular Hemoglobin Concent 32 g/dL (31-37) Red Cell Distribution Width 14.2 % (11.5-14.5) Platelet Count 399 x10^3/uL (140-400) Neutrophils (%) (Auto) 83 % (31-73) Lymphocytes (%) (Auto) 7 % (24-48) Monocytes (%) (Auto) 11 % (0-9) Eosinophils (%) (Auto) 0 % (0-3) Basophils (%) (Auto) 0 % (0-3) Neutrophils # (Auto) 10.7 x10^3/uL (1.8-7.7) Lymphocytes # (Auto) 0.9 x10^3/uL (1.0-4.8) Monocytes # (Auto) 1.4 x10^3/uL (0.0-1.1) Eosinophils # (Auto) 0.0 x10^3/uL (0.0-0.7) Basophils # (Auto) 0.0 x10^3/uL (0.0-0.2) Erythrocyte Sedimentation Rate 36 (0-15) Sodium Level 134 mmol/L (136-145) Potassium Level 4.9 mmol/L (3.5-5.1) Chloride Level 94 mmol/L (98-107) Carbon Dioxide Level 38 mmol/L (21-32) Anion Gap 2 (6-14) Blood Urea Nitrogen 18 mg/dL (8-26) Creatinine 0.9 mg/dL (0.7-1.3) Estimated GFR (Cockcroft-Gault) 86.1 Glucose Level 126 mg/dL (70-99) Calcium Level 9.7 mg/dL (8.5-10.1) O2 Saturation 93 % (92-99) Arterial Blood pH 7.38 (7.35-7.45) Arterial Blood pCO2 at Patient Temp 70 mmHg (35-46) Arterial Blood pO2 at Patient Temp 69 mmHg (65-108) Arterial Blood HCO3 40 mmol/L (21-28) Arterial Blood Base Excess 12 mmol/L (-3-3) FiO2 28 Medications Active Scripts Medications Dose Route/Sig Max Daily Dose Days Date Category Dose Instructions Zanaflex (Tizanidine Hcl) 4 Mg Tablet 1 Tab PO QHS 12/11/17 Reported Vitamin D (Cholecalciferol (Vitamin D3)) 1,000 Unit Capsule 1 Cap PO DAILY 12/11/17 Reported Ibuprofen 400 Mg Tablet 400 Mg PO BID 12/11/17 Reported Pepcid (Famotidine) 20 Mg Tablet 20 Mg PO HS 12/11/17 Reported Doxycycline Hyclate 100 Mg Tablet 1 Tab PO BID 12/11/17 Reported Prednisone (Prednisone) 10 Mg Tablet 10 Mg PO UD 08/20/17 Rx Take 4 tablets by mouth daily for 3 days, then take 3 tablets daily for 3 days, then take 2 tablet daily for 3 days, then take 1 tablet by mouth daily x 3 days, then stop. Advair 100-50 Diskus (Fluticasone/Salmeterol) 1 Each Disk.w.dev 1 Puff IH BID 08/20/17 Rx Spiriva (Tiotropium [place]) 18 Mcg Cap.w.dev 1 Cap IH DAILY 02/14/17 Reported Simvastatin 40 Mg Tablet 1 Tab PO QHS 02/14/17 Reported Protonix (Pantoprazole Sodium) 40 Mg Tablet.dr 1 Tab PO QHS 02/14/17 Reported Hydrocodone-Apap 5-325 (Hydrocodone Bit/Acetaminophen) 1 Each Tablet 1 Tab PO PRN Q6HRS PRN 02/14/17 Reported Loratadine 10 Mg Tablet 1 Tab PO DAILY 02/14/17 Reported Ativan (Lorazepam) 1 Mg Tablet 1 Mg PO PRN DAILY PRN 02/14/17 Reported Tylenol (Acetaminophen) 325 Mg Tablet 2 Tab PO PRN Q4HRS 02/14/17 Reported Abilify (Aripiprazole) 2 Mg Tablet 2 Mg PO DAILY 02/14/17 Reported Albuterol Sulfate Neb Soln (Albuterol Sulfate) 2.5 Mg/3 Ml Vial.neb 2.5 Mg NEB PRN Q4HRS PRN 05/08/15 Rx Comments Admission CXR shows marked hyperexpansion Impression . 1. [id number] hypercapnic respiratory failure secondary to acute exacerbation of chronic obstructive pulmonary disease, improved. 2. Non-ischemic cardiomyopathy. Previous cardiac catheterization in 12/2017 with normal coronary arteries, but ejection fraction of 35% and end-diastolic pressure of 32. 3. Abnormal chest x-ray with marked hyperexpansion and slightly prominent vascular markings. 4. Suspect end stage COPD 5. ongoing tobacco abuse Plan . 1. continue low flow oxygen 2. Follow up ABGs improved 3. Avoid hyperoxia. 4. diuresis prn 5. Continue DuoNeb. 6. will dc iv steroids and start prednisone 30 mg daily 7. off hydrocodone and lorazepam. 8. We will follow along with you. 9. discussed the extreme importance of complete tobacco cessation after discharge. DNR SYMONE THOMAS MD Dec 22, 2018 13:11
[2018-12-22 15:00] VITALS: BP 121/80
--- NOTE | 2018-12-22 15:59 | NUR ---
Critical CO2 came back at 70, pH compensating at 7.38. Dr. Wise wished for this RN to discuss with pulmonology regarding recommendations for bipap or not. This RN spoke with Dr Riojas, who said it is ok for patient to stay off bipap and to titrate oxygen down. Patient is now on 1 L NC and reports no distress.
[2018-12-22 19:00] VITALS: BP 137/80
[2018-12-22] MEDS: PANTOPRAZOLE 40 MG TABLET.DR. PO SCH (21:20)
[2018-12-22] MEDS: SIMVASTATIN 40 MG TABLET. PO SCH (21:20)
[2018-12-22] MEDS: FAMOTIDINE 20 MG TABLET. PO SCH (21:21)
[2018-12-22] MEDS: tiZANidine 4 MG TABLET. PO SCH (21:21)
[2018-12-22 22:44] VITALS: BP 107/70
[2018-12-23 03:00] VITALS: BP 125/72
[2018-12-23 03:46] LABS: BASO % 0 % (0-3); EOS % 0 % (0-3); HEMATOCRIT 33.4 % (39.0-53.0); HEMOGLOBIN 10.9 g/dL (13.0-17.5); LYMPH # 2.3 x10^3/uL (1.0-4.8); LYMPH % 16 % (24-48); MEAN CORPUSCULAR HEMOGLOBIN 30 pg (25-35); MEAN CORPUSCULAR HGB CONC 33 g/dL (31-37); MEAN CORPUSCULAR VOLUME 90 fL (79-100); MONO # 2.3 x10^3/uL (0.0-1.1); MONO % 16 % (0-9); NEUT # 9.6 x10^3/uL (1.8-7.7); NEUT % 67 % (31-73); PLATELET COUNT 357 x10^3/uL (140-400); RED BLOOD COUNT 3.71 x10^6/uL (4.30-5.70); RED CELL DISTRIBUTION WIDTH 14.6 % (11.5-14.5); WHITE BLOOD COUNT 14.3 x10^3/uL (4.0-11.0)
[2018-12-23 04:05] LABS: BLOOD UREA NITROGEN 15 mg/dL (8-26); CALCIUM 9.1 mg/dL (8.5-10.1); CARBON DIOXIDE 40 mmol/L (21-32); CHLORIDE 96 mmol/L (98-107); CREATININE 0.9 mg/dL (0.7-1.3); GFR 86.1; GLUCOSE 93 mg/dL (70-99); POTASSIUM 4.7 mmol/L (3.5-5.1); SODIUM 135 mmol/L (136-145)
[2018-12-23] MEDS: ACETAMINOPHEN 325 MG TABLET. PO PRN (06:03)
[2018-12-23 07:00] VITALS: BP 113/74
[2018-12-23] MEDS: IPRATRPIUM/ALBUTEROL 0.5/2.5MG 3 ML NEBU. NEB SCH ×2 (07:01→11:01)
[2018-12-23] MEDS ORDERED: HYDR-2761 PO (08:13)
[2018-12-23] MEDS ORDERED: LORA-434 PO (08:13)
[2018-12-23] MEDS ORDERED: DOXY100T PO (08:13)
[2018-12-23] MEDS ORDERED: BUDE180A IH (08:14)
[2018-12-23] MEDS ORDERED: GUAI5SYR PO (08:14)
[2018-12-23] MEDS: IBUPROFEN 400 MG TABLET. PO SCH (08:14)
[2018-12-23] MEDS ORDERED: BENZ-8 PO (08:14)
[2018-12-23] MEDS ORDERED: IPRA3AMP29 NEB (08:14)
[2018-12-23] MEDS: CHOLECALCIFEROL (VITAMIN D3) 1,000 UNIT TABLET PO SCH (08:14)
[2018-12-23] MEDS: ARIPiprazole 2 MG TABLET PO SCH (08:14)
[2018-12-23] MEDS: BENZONATATE 100 MG CAPSULE. PO SCH ×2 (08:14→13:14)
--- NOTE | 2018-12-23 08:15 | SNU/HH DC ---
DISCHARGE ORDERS DISCHARGE INFORMATION: DISCHARGE DATE: Dec 23, 2018 FINAL DIAGNOSIS Problems Medical Problems: (1) COPD exacerbation Status: Acute (2) Hypercapnic respiratory failure Status: Acute CONDITION ON DISCHARGE: Stable CODE STATUS: Code Status: DNR/DNI RETIREMENT: SNF STAY <30 DAYS: Yes HOSPICE: HOSPICE: No HOSPICE EVAL & TREAT: No LTAC: ADMIT TO LTAC: Yes POST DISCHARGE ORDERS: ACTIVITY ORDERS: No restrictions WEIGHT BEARING STATUS: No restrictions DIET AFTER DISCHARGE: Regular CHECKS AFTER DISCHARGE: CHECKS AFTER DISCHARGE: Check blood press - daily FOLLOW-UP: PHYSICIAN FOLLOW-UP: advance copd, lives in high CO2 on abg, needs O2 and bIPAP prn TREATMENT/EQUIPMENT ORDERS: ADAPTIVE EQUIPMENT NEEDED: None RESPIRATORY EQUIPMENT NEEDED: Oxygen Physical Therapy For: Evalulation/Treatment Occupational Therapy For: Evaluation/Treatment DISCHARGE MEDICATIONS: Home Meds Active Scripts Budesonide (PULMICORT FLEXHALER) 180 Mcg Aer.pow.ba, 2 PUFF IH BID for soa for 30 Days, #1 INHALER 6 Refills Prov:ANYI FORTE MD 12/23/18 Ipratropium/Albuterol Sulfate (DUONEB 0.5-3(2.5) MG/3 ML) 3 Ml Ampul.neb, 3 ML NEB Q4HRS W/A for soa, #60 EACH Prov:ANYI FORTE MD 12/23/18 Guaifenesin/Dextromethorphan (GUAIFENESIN DM SYRUP) 5 Ml Syrup, 10 ML PO PRN Q6HRS PRN for COUGH for 7 Days, MISC Prov:ANYI FORTE MD 12/23/18 Benzonatate (BENZONATATE) 100 Mg Capsule, 100 MG PO [id number] for cough, #21 CAP Prov:ANYI FORTE MD 12/23/18 Doxycycline Hyclate (DOXYCYCLINE HYCLATE) 100 Mg Tablet, 1 TAB PO BID for bronchitis, #14 TAB Prov:ANYI FORTE MD 12/23/18 Hydrocodone Bit/Acetaminophen (HYDROCODONE-APAP 5-325 ) 1 Each Tablet, 1 TAB PO PRN Q6HRS PRN for PAIN, #20 TAB 0 Refills Prov:ANYI FORTE MD 12/23/18 Lorazepam (ATIVAN) 1 Mg Tablet, 1 MG PO PRN DAILY PRN for ANXIETY / AGITATION, #30 TAB Prov:ANYI FORTE MD 12/23/18 Fluticasone/Salmeterol (ADVAIR 100-50 DISKUS) 1 Each Disk.w.dev, 1 PUFF IH BID, #1 INHALER 5 Refills Prov:SUMEET MEADE MD 08/20/17 Albuterol Sulfate (ALBUTEROL SULFATE NEB SOLN) 2.5 Mg/3 Ml Vial.neb, 2.5 MG NEB PRN Q4HRS PRN for SHORTNESS OF BREATH, #30 Prov:GALLIOT ARREDONDO MD 05/08/15 Reported Medications Tizanidine Hcl (ZANAFLEX) 4 Mg Tablet, 1 TAB PO QHS, #30 TAB 12/11/17 Cholecalciferol (Vitamin D3) (VITAMIN D) 1,000 Unit Capsule, 1 CAP PO DAILY, #30 CAP 3 Refills 12/11/17 Ibuprofen (IBUPROFEN) 400 Mg Tablet, 400 MG PO BID, TAB 12/11/17 Famotidine (PEPCID) 20 Mg Tablet, 20 MG PO HS, TAB 12/11/17 Tiotropium [place] (SPIRIVA) 18 Mcg Cap.w.dev, 1 CAP IH DAILY, #30 CAP 3 Refills 02/14/17 Simvastatin (SIMVASTATIN) 40 Mg Tablet, 1 TAB PO QHS, #30 TAB 5 Refills 02/14/17 Pantoprazole Sodium (PROTONIX ) 40 Mg Tablet.dr, 1 TAB PO QHS, #30 TAB 5 Refills 02/14/17 Loratadine (LORATADINE) 10 Mg Tablet, 1 TAB PO DAILY, #30 TAB 5 Refills 02/14/17 Acetaminophen (TYLENOL) 325 Mg Tablet, 2 TAB PO PRN Q4HRS, #30 TAB 02/14/17 Aripiprazole (ABILIFY) 2 Mg Tablet, 2 MG PO DAILY, TAB 02/14/17 Discontinued Scripts Prednisone (PREDNISONE ) 10 Mg Tablet, 10 MG PO UD for PREDNISONE TAPER, #30 TAB 0 Refills Take 4 tablets by mouth daily for 3 days, then take 3 tablets daily for 3 days, then take 2 tablet daily for 3 days, then take 1 tablet by mouth daily x 3 days, then stop. Prov:SUMEET MEADE MD 08/20/17 ANYI FORTE MD Dec 23, 2018 08:15
[2018-12-23] MEDS ORDERED: predniSONE 10 MG TABLET PO SCH (09:00)
--- NOTE | 2018-12-23 09:01 | NUR ---
IP: Pt mrsa screen is negative and now has 2 consecutive negatives so may be removed from contact precautions. Flag removed.
--- NOTE | 2018-12-23 09:36 | PDOC3 ---
Discharge Summary Visit Information Date of Admission: Dec 19, 2018 Date of Discharge: Dec 23, 2018 Admitting Diagnosis Comment: severe COPD exacerbation-s/p NIPPV Mixed hypercapnic hypoxic respiratory failure Cachexia-BMI 18 Ex-smoker Reactive thrombocytosis Leukocytosis/SIRS Sinus tachycardia hyponatremia-likely SIADH like picture in a chronic COPDer Final Diagnosis Problems Medical Problems: (1) COPD exacerbation Status: Acute (2) Hypercapnic respiratory failure Status: Acute Brief Hospital Course Allergies Allergies Coded Allergies Type Severity Reaction Last Updated Verified No Known Medication Allergies Allergy Unknown 03/01/16 Yes Vital Signs Vital Signs Date Time Temp Pulse Resp B/P (MAP) Pulse Ox O2 Delivery O2 Flow Rate FiO2 12/23/18 08:00 Nasal Cannula 2.0 12/23/18 07:03 95 12/23/18 07:00 97.8 87 20 113/74 (87) 97.8 Lab Results Laboratory Tests Test 12/22/18 06:55 12/22/18 12:05 12/23/18 03:35 White Blood Count 12.9 x10^3/uL (4.0-11.0) 14.3 x10^3/uL (4.0-11.0) Red Blood Count 4.10 x10^6/uL (4.30-5.70) 3.71 x10^6/uL (4.30-5.70) Hemoglobin 12.1 g/dL (13.0-17.5) 10.9 g/dL (13.0-17.5) Hematocrit 37.4 % (39.0-53.0) 33.4 % (39.0-53.0) Mean Corpuscular Volume 91 fL (79-100) 90 fL (79-100) Mean Corpuscular Hemoglobin 29 pg (25-35) 30 pg (25-35) Mean Corpuscular Hemoglobin Concent 32 g/dL (31-37) 33 g/dL (31-37) Red Cell Distribution Width 14.2 % (11.5-14.5) 14.6 % (11.5-14.5) Platelet Count 399 x10^3/uL (140-400) 357 x10^3/uL (140-400) Neutrophils (%) (Auto) 83 % (31-73) 67 % (31-73) Lymphocytes (%) (Auto) 7 % (24-48) 16 % (24-48) Monocytes (%) (Auto) 11 % (0-9) 16 % (0-9) Eosinophils (%) (Auto) 0 % (0-3) 0 % (0-3) Basophils (%) (Auto) 0 % (0-3) 0 % (0-3) Neutrophils # (Auto) 10.7 x10^3/uL (1.8-7.7) 9.6 x10^3/uL (1.8-7.7) Lymphocytes # (Auto) 0.9 x10^3/uL (1.0-4.8) 2.3 x10^3/uL (1.0-4.8) Monocytes # (Auto) 1.4 x10^3/uL (0.0-1.1) 2.3 x10^3/uL (0.0-1.1) Eosinophils # (Auto) 0.0 x10^3/uL (0.0-0.7) 0.0 x10^3/uL (0.0-0.7) Basophils # (Auto) 0.0 x10^3/uL (0.0-0.2) 0.0 x10^3/uL (0.0-0.2) Erythrocyte Sedimentation Rate 36 (0-15) Sodium Level 134 mmol/L (136-145) 135 mmol/L (136-145) Potassium Level 4.9 mmol/L (3.5-5.1) 4.7 mmol/L (3.5-5.1) Chloride Level 94 mmol/L (98-107) 96 mmol/L (98-107) Carbon Dioxide Level 38 mmol/L (21-32) 40 mmol/L (21-32) Anion Gap 2 (6-14) (6-14) Blood Urea Nitrogen 18 mg/dL (8-26) 15 mg/dL (8-26) Creatinine 0.9 mg/dL (0.7-1.3) 0.9 mg/dL (0.7-1.3) Estimated GFR (Cockcroft-Gault) 86.1 86.1 Glucose Level 126 mg/dL (70-99) 93 mg/dL (70-99) Calcium Level 9.7 mg/dL (8.5-10.1) 9.1 mg/dL (8.5-10.1) O2 Saturation 93 % (92-99) Arterial Blood pH 7.38 (7.35-7.45) Arterial Blood pCO2 at Patient Temp 70 mmHg (35-46) Arterial Blood pO2 at Patient Temp 69 mmHg (65-108) Arterial Blood HCO3 40 mmol/L (21-28) Arterial Blood Base Excess 12 mmol/L (-3-3) FiO2 28 Laboratory Tests Test 12/22/18 12:05 12/23/18 03:35 O2 Saturation 93 % (92-99) Arterial Blood pH 7.38 (7.35-7.45) Arterial Blood pCO2 at Patient Temp 70 mmHg (35-46) Arterial Blood pO2 at Patient Temp 69 mmHg (65-108) Arterial Blood HCO3 40 mmol/L (21-28) Arterial Blood Base Excess 12 mmol/L (-3-3) FiO2 28 White Blood Count 14.3 x10^3/uL (4.0-11.0) Red Blood Count 3.71 x10^6/uL (4.30-5.70) Hemoglobin 10.9 g/dL (13.0-17.5) Hematocrit 33.4 % (39.0-53.0) Mean Corpuscular Volume 90 fL (79-100) Mean Corpuscular Hemoglobin 30 pg (25-35) Mean Corpuscular Hemoglobin Concent 33 g/dL (31-37) Red Cell Distribution Width 14.6 % (11.5-14.5) Platelet Count 357 x10^3/uL (140-400) Neutrophils (%) (Auto) 67 % (31-73) Lymphocytes (%) (Auto) 16 % (24-48) Monocytes (%) (Auto) 16 % (0-9) Eosinophils (%) (Auto) 0 % (0-3) Basophils (%) (Auto) 0 % (0-3) Neutrophils # (Auto) 9.6 x10^3/uL (1.8-7.7) Lymphocytes # (Auto) 2.3 x10^3/uL (1.0-4.8) Monocytes # (Auto) 2.3 x10^3/uL (0.0-1.1) Eosinophils # (Auto) 0.0 x10^3/uL (0.0-0.7) Basophils # (Auto) 0.0 x10^3/uL (0.0-0.2) Sodium Level 135 mmol/L (136-145) Potassium Level 4.7 mmol/L (3.5-5.1) Chloride Level 96 mmol/L (98-107) Carbon Dioxide Level 40 mmol/L (21-32) Anion Gap (6-14) Blood Urea Nitrogen 15 mg/dL (8-26) Creatinine 0.9 mg/dL (0.7-1.3) Estimated GFR (Cockcroft-Gault) 86.1 Glucose Level 93 mg/dL (70-99) Calcium Level 9.1 mg/dL (8.5-10.1) Brief Hospital Course Mr. Barton is a 58 old white male who is a resident of long-term care in [place] came in with severe COPD exacerbation with hypercapnia in the 90s CO2 an ABG and a pH of 7.2. Needed BiPAP for a few days and when necessary. Also needed mild diuresis. He would get better with Lasix 40 or 20mg IV pushes. Got better with correction of PH on ABG but his CO2 is anywhere between the 60s to 80s and we think he lives in that range Chest x-ray shows emphysematous/COPD with mild CHF component. His BMI is only 18, he is an ex smoker. He will go back to long-term care [place] on O2. I do not think they can do BiPAP there. He has hyponatremia SIADH picture in a chronic COPD-er. I have Rx'd Lasix 40 once a day indefinitely and some breathing treatments nebs doxycycline etc. Consults performed cardiology/pulmonary Pulmonary recommends diuretic and I have done that Discharge position back to snu DNR PAperwork on chart Discharge Information Condition at Discharge: Improved, Stable Follow Up: Weeks (pulmo 4 weeks) Disposition/Orders: Other (snu) Scheduled Acetaminophen (Tylenol) 325 Mg Tablet, 2 TAB PO PRN Q4HRS, #30 (Reported) Entered as Reported by: KEVEN CAO on 02/14/172316 Last Action: Continued on 12/19/18 0836 by ANYI FORTE Aripiprazole (Abilify) 2 Mg Tablet, 2 MG PO DAILY, (Reported) Entered as Reported by: KEVEN CAO on 9/13/17 2317 Last Action: Converted on 12/19/18835 by ANYI FORTE Benzonatate (Benzonatate) 100 Mg Capsule, 100 MG PO [id number] for cough, #21 Prescribed by: ANYI FORTE on 12/23/18 08 Budesonide (Pulmicort Flexhaler) 180 Mcg Aer.pow.ba, 2 PUFF IH BID for soa for 30 Days, #1 Ref 6 Prescribed by: ANYI FORTE on 12/23/18813 Cholecalciferol (Vitamin D3) (Vitamin D) 1,000 Unit Capsule, 1 CAP PO DAILY, #30 Ref 3 (Reported) Entered as Reported by: TARI ROMERO on 12/11/1718 Last Action: Converted on 12/19/18835 by ANYI FORTE Doxycycline Hyclate (Doxycycline Hyclate) 100 Mg Tablet, 1 TAB PO BID for bronchitis, #14 Prescribed by: ANYI FORTE on 12/23/18812 Famotidine (Pepcid) 20 Mg Tablet, 20 MG PO HS, (Reported) Entered as Reported by: TARI ROMERO on 12/11/1718 Last Action: Continued on 12/19/18835 by ANYI FORTE Fluticasone/Salmeterol (Advair 100-50 Diskus) 1 Each Disk.w.dev, 1 PUFF IH BID, #1 Ref 5 Prescribed by: SUMEET MEADE on 08/20/17 1215 Last Action: HELD on 12/19/18835 by ANYI FORTE Ibuprofen (Ibuprofen) 400 Mg Tablet, 400 MG PO BID, (Reported) Entered as Reported by: TARI ROMERO on 12/11/1718 Last Action: Continued on 12/19/18835 by ANYI FORTE Ipratropium/Albuterol Sulfate (Duoneb 0.5-3(2.5) Mg/3 Ml) 3 Ml Ampul.neb, 3 ML NEB Q4HRS W/A for soa, #60 Prescribed by: ANYI FORTE on 12/23/18813 Loratadine (Loratadine) 10 Mg Tablet, 1 TAB PO DAILY, #30 Ref 5 (Reported) Entered as Reported by: KEVEN CAO on 02/14/172316 Last Action: HELD on 12/19/18835 by ANYI FORTE Pantoprazole Sodium (Protonix ) 40 Mg Tablet.dr, 1 TAB PO QHS, #30 Ref 5 (Reported) Entered as Reported by: KEVEN CAO on 02/14/172316 Last Action: Continued on 12/19/18835 by ANYI FORTE Simvastatin (Simvastatin) 40 Mg Tablet, 1 TAB PO QHS, #30 Ref 5 (Reported) Entered as Reported by: KEVEN CAO on 02/14/172316 Last Action: Converted on 12/19/18835 by ANYI FORTE Tiotropium [place] (Spiriva) 18 Mcg Cap.w.dev, 1 CAP IH DAILY, #30 Ref 3 (Reported) Entered as Reported by: KEVEN CAO on 02/14/172316 Last Action: Converted on 12/19/18835 by ANYI FORTE Tizanidine Hcl (Zanaflex) 4 Mg Tablet, 1 TAB PO QHS, #30 (Reported) Entered as Reported by: TARI ROMERO on 12/11/1718 Last Action: Converted on 12/19/18835 by ANYI FORTE Scheduled PRN Albuterol Sulfate (Albuterol Sulfate Neb Soln) 2.5 Mg/3 Ml Vial.neb, 2.5 MG NEB PRN Q4HRS PRN for SHORTNESS OF BREATH, #30 Prescribed by: GALLITO ARREDONDO MD on 05/08/15918 Last Action: HELD on 12/19/18835 by ANYI FORTE Guaifenesin/Dextromethorphan (Guaifenesin Dm Syrup) 5 Ml Syrup, 10 ML PO PRN Q6HRS PRN for COUGH for 7 Days Prescribed by: ANYI FORTE on 12/23/18 08 Hydrocodone Bit/Acetaminophen (Hydrocodone-Apap 5-325 ) 1 Each Tablet, 1 TAB PO PRN Q6HRS PRN for PAIN, #20 Ref 0 Prescribed by: ANYI FORTE on 12/23/18812 Lorazepam (Ativan) 1 Mg Tablet, 1 MG PO PRN DAILY PRN for ANXIETY / AGITATION, #30 Prescribed by: ANYI FORTE on 12/23/18812 Discontinued Medications Prednisone (Prednisone ) 10 Mg Tablet, 10 MG PO UD for PREDNISONE TAPER, #30 Ref 0 Take 4 tablets by mouth daily for 3 days, then take 3 tablets daily for 3 days, then take 2 tablet daily for 3 days, then take 1 tablet by mouth daily x 3 days, then stop. Prescribed by: SUMEET MEADE on 08/20/17 1215 Last Action: HELD on 12/19/18835 by ANYI PLATA MD Dec 23, 2018 09:36
[2018-12-23 11:00] VITALS: BP 133/75
--- NOTE | 2018-12-23 11:22 | PDOC ---
PULMONARY PROGRESS NOTES Subjective feels better, less short of breath. Vitals Vital Signs Date Time Temp Pulse Resp B/P (MAP) Pulse Ox O2 Delivery O2 Flow Rate FiO2 12/23/18 11:01 95 Nasal Cannula 2.0 12/23/18 11:00 98.6 72 16 133/75 (94) 98.6 General: Alert, Oriented X4, No acute distress, Mild Distress Lungs: Other (decrease bs) Cardiovascular: S1, S2 Abdomen: Soft, Non-tender Neuro Exam: Alert Extremities: No Edema Skin: Warm Labs Laboratory Tests Test 12/22/18 06:55 12/22/18 12:05 12/23/18 03:35 White Blood Count 12.9 x10^3/uL (4.0-11.0) 14.3 x10^3/uL (4.0-11.0) Red Blood Count 4.10 x10^6/uL (4.30-5.70) 3.71 x10^6/uL (4.30-5.70) Hemoglobin 12.1 g/dL (13.0-17.5) 10.9 g/dL (13.0-17.5) Hematocrit 37.4 % (39.0-53.0) 33.4 % (39.0-53.0) Mean Corpuscular Volume 91 fL (79-100) 90 fL (79-100) Mean Corpuscular Hemoglobin 29 pg (25-35) 30 pg (25-35) Mean Corpuscular Hemoglobin Concent 32 g/dL (31-37) 33 g/dL (31-37) Red Cell Distribution Width 14.2 % (11.5-14.5) 14.6 % (11.5-14.5) Platelet Count 399 x10^3/uL (140-400) 357 x10^3/uL (140-400) Neutrophils (%) (Auto) 83 % (31-73) 67 % (31-73) Lymphocytes (%) (Auto) 7 % (24-48) 16 % (24-48) Monocytes (%) (Auto) 11 % (0-9) 16 % (0-9) Eosinophils (%) (Auto) 0 % (0-3) 0 % (0-3) Basophils (%) (Auto) 0 % (0-3) 0 % (0-3) Neutrophils # (Auto) 10.7 x10^3/uL (1.8-7.7) 9.6 x10^3/uL (1.8-7.7) Lymphocytes # (Auto) 0.9 x10^3/uL (1.0-4.8) 2.3 x10^3/uL (1.0-4.8) Monocytes # (Auto) 1.4 x10^3/uL (0.0-1.1) 2.3 x10^3/uL (0.0-1.1) Eosinophils # (Auto) 0.0 x10^3/uL (0.0-0.7) 0.0 x10^3/uL (0.0-0.7) Basophils # (Auto) 0.0 x10^3/uL (0.0-0.2) 0.0 x10^3/uL (0.0-0.2) Erythrocyte Sedimentation Rate 36 (0-15) Sodium Level 134 mmol/L (136-145) 135 mmol/L (136-145) Potassium Level 4.9 mmol/L (3.5-5.1) 4.7 mmol/L (3.5-5.1) Chloride Level 94 mmol/L (98-107) 96 mmol/L (98-107) Carbon Dioxide Level 38 mmol/L (21-32) 40 mmol/L (21-32) Anion Gap 2 (6-14) (6-14) Blood Urea Nitrogen 18 mg/dL (8-26) 15 mg/dL (8-26) Creatinine 0.9 mg/dL (0.7-1.3) 0.9 mg/dL (0.7-1.3) Estimated GFR (Cockcroft-Gault) 86.1 86.1 Glucose Level 126 mg/dL (70-99) 93 mg/dL (70-99) Calcium Level 9.7 mg/dL (8.5-10.1) 9.1 mg/dL (8.5-10.1) O2 Saturation 93 % (92-99) Arterial Blood pH 7.38 (7.35-7.45) Arterial Blood pCO2 at Patient Temp 70 mmHg (35-46) Arterial Blood pO2 at Patient Temp 69 mmHg (65-108) Arterial Blood HCO3 40 mmol/L (21-28) Arterial Blood Base Excess 12 mmol/L (-3-3) FiO2 28 Laboratory Tests Test 12/22/18 12:05 12/23/18 03:35 O2 Saturation 93 % (92-99) Arterial Blood pH 7.38 (7.35-7.45) Arterial Blood pCO2 at Patient Temp 70 mmHg (35-46) Arterial Blood pO2 at Patient Temp 69 mmHg (65-108) Arterial Blood HCO3 40 mmol/L (21-28) Arterial Blood Base Excess 12 mmol/L (-3-3) FiO2 28 White Blood Count 14.3 x10^3/uL (4.0-11.0) Red Blood Count 3.71 x10^6/uL (4.30-5.70) Hemoglobin 10.9 g/dL (13.0-17.5) Hematocrit 33.4 % (39.0-53.0) Mean Corpuscular Volume 90 fL (79-100) Mean Corpuscular Hemoglobin 30 pg (25-35) Mean Corpuscular Hemoglobin Concent 33 g/dL (31-37) Red Cell Distribution Width 14.6 % (11.5-14.5) Platelet Count 357 x10^3/uL (140-400) Neutrophils (%) (Auto) 67 % (31-73) Lymphocytes (%) (Auto) 16 % (24-48) Monocytes (%) (Auto) 16 % (0-9) Eosinophils (%) (Auto) 0 % (0-3) Basophils (%) (Auto) 0 % (0-3) Neutrophils # (Auto) 9.6 x10^3/uL (1.8-7.7) Lymphocytes # (Auto) 2.3 x10^3/uL (1.0-4.8) Monocytes # (Auto) 2.3 x10^3/uL (0.0-1.1) Eosinophils # (Auto) 0.0 x10^3/uL (0.0-0.7) Basophils # (Auto) 0.0 x10^3/uL (0.0-0.2) Sodium Level 135 mmol/L (136-145) Potassium Level 4.7 mmol/L (3.5-5.1) Chloride Level 96 mmol/L (98-107) Carbon Dioxide Level 40 mmol/L (21-32) Anion Gap (6-14) Blood Urea Nitrogen 15 mg/dL (8-26) Creatinine 0.9 mg/dL (0.7-1.3) Estimated GFR (Cockcroft-Gault) 86.1 Glucose Level 93 mg/dL (70-99) Calcium Level 9.1 mg/dL (8.5-10.1) Medications Active Scripts Medications Dose Route/Sig Max Daily Dose Days Date Category Dose Instructions Zanaflex (Tizanidine Hcl) 4 Mg Tablet 1 Tab PO QHS 12/11/17 Reported Vitamin D (Cholecalciferol (Vitamin D3)) 1,000 Unit Capsule 1 Cap PO DAILY 12/11/17 Reported Ibuprofen 400 Mg Tablet 400 Mg PO BID 12/11/17 Reported Pepcid (Famotidine) 20 Mg Tablet 20 Mg PO HS 12/11/17 Reported Doxycycline Hyclate 100 Mg Tablet 1 Tab PO BID 12/11/17 Reported Prednisone (Prednisone) 10 Mg Tablet 10 Mg PO UD 08/20/17 Rx Take 4 tablets by mouth daily for 3 days, then take 3 tablets daily for 3 days, then take 2 tablet daily for 3 days, then take 1 tablet by mouth daily x 3 days, then stop. Advair 100-50 Diskus (Fluticasone/Salmeterol) 1 Each Disk.w.dev 1 Puff IH BID 08/20/17 Rx Spiriva (Tiotropium [place]) 18 Mcg Cap.w.dev 1 Cap IH DAILY 02/14/17 Reported Simvastatin 40 Mg Tablet 1 Tab PO QHS 02/14/17 Reported Protonix (Pantoprazole Sodium) 40 Mg Tablet.dr 1 Tab PO QHS 02/14/17 Reported Hydrocodone-Apap 5-325 (Hydrocodone Bit/Acetaminophen) 1 Each Tablet 1 Tab PO PRN Q6HRS PRN 02/14/17 Reported Loratadine 10 Mg Tablet 1 Tab PO DAILY 02/14/17 Reported Ativan (Lorazepam) 1 Mg Tablet 1 Mg PO PRN DAILY PRN 02/14/17 Reported Tylenol (Acetaminophen) 325 Mg Tablet 2 Tab PO PRN Q4HRS 02/14/17 Reported Abilify (Aripiprazole) 2 Mg Tablet 2 Mg PO DAILY 02/14/17 Reported Albuterol Sulfate Neb Soln (Albuterol Sulfate) 2.5 Mg/3 Ml Vial.neb 2.5 Mg NEB PRN Q4HRS PRN 05/08/15 Rx Comments Admission CXR shows marked hyperexpansion Impression . 1. [id number] hypercapnic respiratory failure secondary to acute exacerbation of chronic obstructive pulmonary disease, improved. 2. Non-ischemic cardiomyopathy. Previous cardiac catheterization in 12/2017 with normal coronary arteries, but ejection fraction of 35% and end-diastolic pressure of 32. 3. Abnormal chest x-ray with marked hyperexpansion and slightly prominent vas cular markings. 4. Suspect end stage COPD 5. ongoing tobacco abuse Plan . 1. continue low flow oxygen 2. Follow up ABGs improved, fully compensated. 3. Avoid hyperoxia. 4. diuresis prn 5. Continue DuoNeb. 6. prednisone 30 mg daily 7. off hydrocodone and lorazepam. 8. We will follow along with you. 9. discussed the extreme importance of complete tobacco cessation after discharge. DNR d/w RN. OK WITH DC TO RADHA LANDEROS MD Dec 23, 2018 11:22
--- NOTE | 2018-12-23 14:12 | NUR ---
Discharge Note: PT DISCHARGED BACK TO [facility]. PT BEING PICKED UP FROM FACILITY VIA [facility] AT APPROX 1500 PT STABLE AND ALERT UPON DISCHARGE. PT PIV REMOVED FROM R FA WITH BANDAGE APPLIED, SOME BLEEDING NOTED TO SITE AFTER BEING REMOVED. REPORT CALLED TO NURSE AT FACILITY AT 1410, INFORMED PT OF DISCHARGE INSTRUCTIONS AND DISCHARGE MEDICATIONS. NO CONCERNS VOICED AT THIS TIME. MACIEJ YUAN Discharge instructions and discharge home medications reviewed with Patient and a copy given. All questions have been answered and understanding verbalized.
== END 2018-12-23 14:50 | DRG 643 ==
LOC: ER 07:44 → ED HOLD 08:26 → 6 SOUTH 10:46 → 5 SOUTH 12-21 22:34
PROVIDERS: ADMIT Internal Medicine; ATTEND Internal Medicine
PROC: 5A09357 Assistance with Respiratory Ventilation, Less than 24 Consecutive Hours, Continuous Positive Airway Pressure (ICD-10-PCS; 2018-12-19)
PROC: 5A09357 Assistance with Respiratory Ventilation, Less than 24 Consecutive Hours, Continuous Positive Airway Pressure (ICD-10-PCS; principal; 2018-12-20)
DX: E22.2 Syndrome of inappropriate secretion of antidiuretic hormone (principal); J96.21 Acute and chronic respiratory failure with hypoxia; J96.22 Acute and chronic respiratory failure with hypercapnia; J44.1 Chronic obstructive pulmonary disease with (acute) exacerbation; Z68.1 Body mass index [BMI] 19.9 or less, adult; I42.9 Cardiomyopathy, unspecified; R64 Cachexia; R65.10 Systemic inflammatory response syndrome (SIRS) of non-infectious origin without acute organ dysfunction; E78.00 Pure hypercholesterolemia, unspecified; F41.9 Anxiety disorder, unspecified; E78.5 Hyperlipidemia, unspecified; F03.90 Unspecified dementia, unspecified severity, without behavioral disturbance, psychotic disturbance, mood disturbance, and anxiety; G89.29 Other chronic pain; F17.200 Nicotine dependence, unspecified, uncomplicated; F20.9 Schizophrenia, unspecified; I11.0 Hypertensive heart disease with heart failure; I50.9 Heart failure, unspecified; K21.9 Gastro-esophageal reflux disease without esophagitis; Z66 Do not resuscitate; Z99.81 Dependence on supplemental oxygen; Z71.6 Tobacco abuse counseling
CPT/HCPCS: 36415; 36600; 71045; 80048; 80053; 82805; 83880; 84484; 85007; 85025; 85651; 87641; 93005; 94640; 94660; 94760; 96374; J1940; J2920; J2930; J7030; J7512; J7620; 97116; 99291-25